=== PATIENT | female | born 1935 | race Caucasian/White ===

== ENCOUNTER 2016-09-24 14:55 | Inpatient (IN) | payer OTHER, MEDICARE ==
[~2016-09-24] VITALS: Ht 149.9 cm; Wt 92.5 kg
[~2016-09-24 14:55] MED LIST: ATORVASTATIN CA40 MG PO; AZITHROMYCIN250 MG PO; COUMADIN 2.5 M2.5 MG PO; DILANTIN ER 10100 MG PO; DIOVAN80 MG PO; FAMOTIDINE20 MG PO; KLOR-CON SPRIN10 MEQ PO; LASIX40 MG PO; LEVOTHROID0.1 MG PO; LOPRESSOR 25MG25 MG PO; METFORMIN HCL500 MG PO; PHENOBARBITAL32.4 MG PO
--- NOTE | 2016-09-24 15:28 | NUR ---
PT STATES SHE HAS HAD DIARRHEA FOR THE PAST 3 WEEKS. PT STATES SHE THINKS SHE HAS BLOOD IN HER STOOL AND SHE THINKS SHE COULD BE DEHYDRATED
--- NOTE | 2016-09-24 16:02 | NUR ---
DR PATEL AT BEDSIDE FOR EVAL.
--- NOTE | 2016-09-24 16:45 | NUR ---
BLOOD DRAWN AND SENT TO LAB BY THIS [facility] (BLUE, SST, PINK, RAMÍREZ, LAV)
[2016-09-24 16:49] LABS: ABSOLUTE BASOPHIL COUNT 0 /CUMM (0.0-0.2); ABSOLUTE EOSINOPHIL COUNT 0.3 /CUMM (0.0-0.7); ABSOLUTE GRANULOCYTE CT 3.9 /CUMM (1.4-6.5); BASOPHIL % 0.4 % (0.0-2.0); EOSINOPHIL % 3.7 % (0-5); GRANULOCYTE % 54.5 % (42.2-75.2); HEMATOCRIT 31.4 % (37-47); MEAN CORPUSCULAR HGB CONC 34.1 G/DL (33.0-37.0); MEAN CORPUSCULAR VOLUME 93.8 FL (81.0-99.0); MEAN PLATELET VOLUME 7.1 FL (7.4-10.4); PLATELET COUNT 282 /CUMM (130-400); RBC DISTRIBUTION WIDTH 13.7 % (11.5-14.5); RED BLOOD CELL CT 3.35 /CUMM (4.20-5.40)
--- NOTE | 2016-09-24 16:52 | NUR ---
PT UP TO COMMODE.
--- NOTE | 2016-09-24 16:54 | NUR ---
PT AWARE THAT STOOL AND URINE SAMPLE IS NEEDED.
[2016-09-24 17:01] LABS: WHITE BLOOD CELL COUNT 7.1 /CUMM (4.8-10.8)
[2016-09-24] MEDS ORDERED: LEVOTHYROXINE100 MC1 PO (17:08)
[2016-09-24] MEDS ORDERED: SIMVASTATIN40 M1 PO (17:08)
[2016-09-24] MEDS ORDERED: FAMOTIDINE20 M1 PO (17:08)
[2016-09-24] MEDS ORDERED: METFORMIN HCL500 M3 PO (17:08)
[2016-09-24] MEDS ORDERED: PHENOBARBITAL32.4 M1 PO (17:08)
[2016-09-24] MEDS ORDERED: POTASSIUM CHLO10 ME5 PO (17:08)
--- NOTE | 2016-09-24 17:08 | NUR ---
NS INFUSING PER EMAR.
[2016-09-24] MEDS ORDERED: ESTRACE42.5 GM VG (17:10)
[2016-09-24] MEDS ORDERED: PHENYTOIN SODI100 MG PO (17:10)
[2016-09-24] MEDS ORDERED: FUROSEMIDE40 M1 PO (17:11)
[2016-09-24] MEDS ORDERED: NITROGLYCERIN1 EACH TOP (17:11)
--- NOTE | 2016-09-24 17:11 | ED GI/GU/ABDOMINAL COMPLAINT ---
History of Present Illness General Chief Complaint: General Adult Stated Complaint: DIARRHEA Source: patient, family, old records Exam Limitations: no limitations Vital Signs & Intake/Output Vital Signs & Intake/Output Vital Signs Date Time Temp Pulse Resp B/P B/P Pulse O2 O2 Flow FiO2 Mean Ox Delivery Rate 09/24 1718 97.0 66 18 101/57 94 Room Air 09/24 1527 97.7 68 16 170/79 92 Room Air Allergies Uncoded Allergies: INHALER (UNSURE NAME) (HIVES 09/07/11) Reconcile Medications Aspirin (Ecotrin*) 81 MG TABLET.DR 1 TAB PO DAILY HEART/BLOOD (Reported) Ciclopirox Olamine (Ciclopirox) 0.77 % SUSPENSION 1 SANAZ TOP DAILY GROIN ( Reported) Estradiol (Estrace) 0.01 % CREAM.APPL 1 SANAZ VG DAILY HRT (Reported) Famotidine 20 MG TABLET 1 TAB PO DAILY GI (Reported) Furosemide 40 MG TABLET 1 TAB PO DAILY DIURETIC (Reported) Levothyroxine Sodium 100 MCG TABLET 1 TAB PO DAILY THYROID (Reported) Metformin HCl 500 MG TABLET 1 TAB PO BID DM (Reported) Metoprolol Tartrate 25 MG TABLET 1 TAB PO DAILY HEART/BP (Reported) Nitroglycerin (Nitroglycerin Patch) 0.4 MG/HOUR PATCH.TD24 1 PATCH TOP DAILY HEART (Reported) Phenobarbital 32.4 MG TABLET 3 TAB PO QPM SEIZURES (Reported) Phenytoin Sodium Extended 100 MG CAPSULE 2 CAP PO BID SEIZURES (Reported) Potassium Chloride 10 MEQ TAB.ER.PRT 1 TAB PO DAILY SUPPLEMENT (Reported) Simvastatin (Simvastatin*) 40 MG TABLET 1 TAB PO QPM CHOLESTEROL (Reported) Valsartan 80 MG TABLET 1 TAB PO DAILY BP (Reported) Triage Note: PT STATES SHE HAS HAD DIARRHEA FOR THE PAST 3 WEEKS. PT STATES SHE THINKS SHE HAS BLOOD IN HER STOOL AND SHE THINKS SHE COULD BE DEHYDRATED Triage Nurses Notes Reviewed? yes LMP (ages 10-50): post menopausal ? n Is pt currently ? No Onset: 3 months Duration: week(s):, changing over time, continues in ED, getting worse Timing: recent history Quality/Severity: cramping, moderate Location: generalized abdomen Radiation: no radiation Activities at Onset: none Prior Abdominal Problems: none Past Sexual History: Unobtainable at this time Modifying Factors: Worsens With: eating. Associated Symptoms: abdominal pain, diarrhea, loss of appetite HPI: 3 months prior to admission patient complains of episodic loose watery stools. 3 weeks prior to admission and diarrhea increased in frequency becoming uncontrollable with Imodium associated with nausea and decreased appetite and weakness. She denies fever chills nausea vomiting chest pain cough shortness of breath headache dysuria rash bleeding antibiotic use ill contacts. (AKIN PATEL MD) Past History Travel History Traveled to [place] past 21 day No Medical History Any Pertinent Medical History? 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 No (AKIN PATEL MD) Review of Systems Review of Systems Constitutional: Reports: see HPI, weakness. EENTM: Reports: no symptoms. Respiratory: Reports: no symptoms. Cardiovascular: Reports: no symptoms. GI: Reports: see HPI, abdominal pain, diarrhea. Genitourinary: Reports: no symptoms. Musculoskeletal: Reports: no symptoms. Skin: Reports: no symptoms. Neurological/Psychological: Reports: no symptoms. Hematologic/Endocrine: Reports: no symptoms. Immunologic/Allergic: Reports: no symptoms. All Other Systems: Reviewed and Negative (AKIN PATEL MD) Physical Exam Physical Exam General Appearance: well developed/nourished, alert, awake, anxious, mild distress, obese Head: atraumatic, normal appearance Eyes: Bilateral: normal appearance, PERRL, EOMI, normal inspection. Ears, Nose, Throat, Mouth: hearing grossly normal, dry mucous membranes Neck: normal inspection, supple, full range of motion, normal alignment, no midline tenderness Respiratory: normal breath sounds, chest non-tender, no respiratory distress, lungs clear Cardiovascular: regular rate/rhythm, normal peripheral pulses, norml femoral pulses equa Peripheral Pulses: 4+ carotid (R), 4+ carotid (L) Gastrointestinal: normal bowel sounds, soft, non-tender, no organomegaly Back: normal inspection, normal range of motion, no vertebral tenderness Extremities: normal range of motion, pedal edema, no ligament instability Neurologic/Psych: no motor/sensory deficits, awake, alert, oriented x 3, normal mood/affect, 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 No Severe Sepsis Present: No Septic Shock Present: No (AMANDA LEONG,AKIN) Progress Differential Diagnosis: biliary colic, diverticulitis, gastritis Plan of Care: Orders Procedure Date/time Status Add-on Test (ER Only) 09/24 2104 Active BLOOD CULTURE 09/24 2104 Active Add-on Test (ER Only) 09/24 1711 Active DILANTIN 09/24 163 Complete STOOL: R/O YERSINIA 09/24 161 Active STOOL:R/O VIBRIO 09/24 161 Active CULTURE,STOOL 09/24 161 Active C.DIFFICILE 09/24 161 Active URINALYSIS 09/24 161 Complete LIPASE 09/24 161 Complete COMPREHENSIVE METABOLIC PANEL 09/24 161 Complete CBC WITHOUT DIFFERENTIAL 09/24 161 Complete Current Medications Sig/Flory Start time Last Medication Dose Stop Time Status Admin Ceftriaxone Sodium 1,000 MG ONCE ONE 09/24 2114 UNVr (Rocephin) 09/25 2115 Laboratory Tests 09/24/16 1833: Urinalysis LIGHT H, Urine Color YEL, Urine Clarity HAZY H, Urine pH 6.5, Ur Specific [place] <= 1.005, Urine Protein NEG, Urine Ketones NEG, Urine Nitrite NEG, Urine Bilirubin NEG, Urine Urobilinogen 0.2, Ur Leukocyte Esterase LARGE H , Ur Microscopic SEDIMENT EXAMINED, Urine RBC 1-3, Urine WBC 25-50 H, Ur Epithelial Cells MOD H, Urine Bacteria MANY H, Granular Casts 5-10 H, Urine Hemoglobin SMALL H, Urine Glucose NEG 09/24/16 1636: Anion Gap 11, Estimated GFR > 60, BUN/Creatinine Ratio 23.3, Glucose 101 H, Calcium 9.1, Total Bilirubin 0.5, AST 41 H, ALT 50, Alkaline Phosphatase 99, Total Protein 8.4 H, Albumin 4.5, Globulin 3.9, Albumin/Globulin Ratio 1.2, Lipase 122, CBC w Diff NO MAN DIFF REQ, RBC 3.35 L, MCV 93.8, MCH 32.0 H, RDW 13.7, MPV 7.1 L, Gran % 54.5, Lymphocytes % 28.0, Monocytes % 13.4 H, Eosinophils % 3.7, Basophils % 0.4, Absolute Granulocytes 3.9, Absolute Lymphocytes 2.0, Absolute Monocytes 1.0 H, Absolute Eosinophils 0.3, Absolute Basophils 0, PUBS MCHC 34.1, Ref Lab Test Result Pending, Phenytoin 8.7 L Microbiology 09/24 2104 BLOOD: Blood Culture - ORD 09/24 2104 BLOOD: Blood Culture - ORD 09/25 1611 STOOL: Clostridium difficile Toxin A & B - ORD 09/25 1611 STOOL: Vibrio Culture - ORD 09/25 1611 STOOL: Yersinia Culture - ORD 09/25 1611 STOOL: Stool Culture - ORD Diagnostic Imaging: Viewed by Me: CT Scan. Discussed w/RAD: CT Scan. Initial ED EKG: none Hand-Off Endorsed To: PIETRO LEONG,TOM Dai Endorsed Time: 1899 Pending: CT, other (hospitalization) (AMANDA LEONG,AKIN) Radiology Impression: abd/pelvic ct... constipation, no inflammation... full report below. Comments: PATIENT: MEENA ALFONSO PRESENT AGE: 80 PATIENT ACCOUNT NO: [id number] : 35 LOCATION: [facility] ORDERING PHYSICIAN: AKIN PATEL MD SERVICE DATE: 09/24/16 EXAM TYPE: CAT - CT ABD & PELVIS W IV CONTRAST EXAMINATION: CT ABDOMEN AND PELVIS WITH CONTRAST CLINICAL INFORMATION: Diarrhea for 3 months. COMPARISON: None. TECHNIQUE: Multidetector volumetric imaging was performed of the abdomen and pelvis before and after the IV administration of 94 mL of Optiray 320 intravenous contrast. Sagittal and coronal reformatted images were obtained on the technologist's workstation. DLP: 1173 mGy-cm FINDINGS: LUNG BASES: Bibasilar subsegmental atelectasis. LIVER, GALLBLADDER, AND BILIARY TREE: The liver is normal in size and attenuation. No focal hepatic lesion or biliary ductal dilatation is present. The gallbladder is physiologically distended. Several small stones are present within the gallbladder lumen without associated gallbladder wall or pericholecystic inflammatory changes. PANCREAS: Generalized pancreatic atrophy without peripancreatic inflammatory changes or fluid collections. SPLEEN: Unremarkable. ADRENAL GLANDS: Unremarkable. KIDNEYS AND URETERS: The kidneys are normal in size, shape, and attenuation. No hydronephrosis, hydroureter, or calculi seen. No perinephric stranding. BLADDER: The urinary bladder is moderately distended. There is mass effect along the left posterolateral aspect of the bladder secondary to a redundant sigmoid colon with a significant amount of retained stool. GASTROINTESTINAL TRACT: As noted above, there is significant redundancy of the sigmoid colon. Also noted is a significant amount of retained stool throughout the colon, indicative of constipation. The rectal vault is distended and filled with fecal matter and is visualized measuring approximately 8.0 x 10.0 cm in AP and transverse dimensions respectively. There is also identified throughout the colon. Loops of small bowel are normal in caliber, without findings indicative of small bowel obstruction. No circumferential bowel wall thickening is identified. There are no organizing intra-abdominal or pelvic fluid collections and there is no free intraperitoneal air. ABDOMINAL WALL: Large pannus. No ventral abdominal wall hernia. LYMPH NODES: No significant mesenteric, retroperitoneal or deep pelvic adenopathy. Subcentimeter bilateral inguinal chain lymph nodes. VASCULAR: Atherosclerosis of the imaged abdominal aorta and its branching vessels, without aneurysmal dilatation. The abdominal aorta and its branching vessels are patent and normal in caliber. PELVIC VISCERA: Unremarkable. OSSEOUS STRUCTURES: No acute osseous abnormality. Severe multilevel degenerative disc disease and facet arthrosis of the lumbar spine. No visible destructive osseous lesions. No acute osseous abnormality is identified. IMPRESSION: 1. There is significant redundancy of the sigmoid colon. A significant amount of retained stool is identified throughout the colon, indicative of constipation. The rectal vault is filled with stool. There is no circumferential rectal wall thickening to suggest stercoral colitis. No bowel wall pneumatosis is identified. There are no findings indicative of perforation. 2. Cholelithiasis, without secondary signs of acute cholecystitis. DICTATED BY: KALPESH ROLLE MD DATE/TIME DICTATED:09/24/161938 BIOMETRIC SCREENER:UMESH DATE/TIME TRANSCRIBED:09/24/161938 CONFIDENTIAL, DO NOT COPY WITHOUT APPROPRIATE AUTHORIZATION. <Electronically signed in Other Vendor System> SIGNED BY: KALPESH ROLLE MD 09/24/161951 (PIETRO LEONG,TOM Dai) Departure Departure Disposition: STILL A PATIENT Condition: Stable Referrals: JACOB LEONG,JAZ Goodwin (PCP/Family) Departure Forms: Customer Survey General Discharge Information (AMANDA LEONG,AKIN) Departure Clinical Impression Primary Impression: Diarrhea Qualifiers: Diarrhea type: unspecified type Qualified Code: R19.7 - Diarrhea, unspecified Secondary Impressions: Dehydration syndrome, Hyponatremia syndrome, UTI (urinary tract infection) Admission Note Spoke With: USMAN COSME MD Documentation of Exam: Documentation of any treatments & extenuating circumstances including Concerns Regarding Discharge (functional status, medication knowledge or non-compliance, living conditions, etc.) that warrant an admission rather than observation: pt with hyponatremia, weakness, also with symptoms consistent with uti (burning, "smells funny" per patient), and diarrhea of uncertain etiology (?overflow from constipation). Pt merits inpatient care of her complicated multifactorial medical presentation, including iv abx, iv fluids, possible gi consult vs bowel clean out. (PIETRO LEONG,TOM Dai)
[2016-09-24] MEDS ORDERED: CICLOPIROX60 ML TOP (17:12)
[2016-09-24] MEDS ORDERED: METOPROLOL TART25 M1 PO (17:12)
[2016-09-24] MEDS ORDERED: ASPIRIN EC81 M1 PO (17:13)
[2016-09-24] MEDS ORDERED: VALSARTAN80 M1 PO (17:13)
--- NOTE | 2016-09-24 18:35 | NUR ---
PT URINE COLLECTED AND SENT TO LAB. SINGLE CLEAR TOP SENT PT HAS POOR OUTPUT AT THIS TIME
--- NOTE | 2016-09-24 19:07 | NUR ---
PT TO CAT SCAN AT THIS TIME VIA STRETCHER.
--- NOTE | 2016-09-24 19:52 | CT SCAN REPORT ---
EXAMINATION: CT ABDOMEN AND PELVIS WITH CONTRAST CLINICAL INFORMATION: Diarrhea for 3 months. COMPARISON: None. TECHNIQUE: Multidetector volumetric imaging was performed of the abdomen and pelvis before and after the IV administration of 94 mL of Optiray 320 intravenous contrast. Sagittal and coronal reformatted images were obtained on the technologist's workstation. DLP: 1173 mGy-cm FINDINGS: LUNG BASES: Bibasilar subsegmental atelectasis. LIVER, GALLBLADDER, AND BILIARY TREE: The liver is normal in size and attenuation. No focal hepatic lesion or biliary ductal dilatation is present. The gallbladder is physiologically distended. Several small stones are present within the gallbladder lumen without associated gallbladder wall or pericholecystic inflammatory changes. PANCREAS: Generalized pancreatic atrophy without peripancreatic inflammatory changes or fluid collections. SPLEEN: Unremarkable. ADRENAL GLANDS: Unremarkable. KIDNEYS AND URETERS: The kidneys are normal in size, shape, and attenuation. No hydronephrosis, hydroureter, or calculi seen. No perinephric stranding. BLADDER: The urinary bladder is moderately distended. There is mass effect along the left posterolateral aspect of the bladder secondary to a redundant sigmoid colon with a significant amount of retained stool. GASTROINTESTINAL TRACT: As noted above, there is significant redundancy of the sigmoid colon. Also noted is a significant amount of retained stool throughout the colon, indicative of constipation. The rectal vault is distended and filled with fecal matter and is visualized measuring approximately 8.0 x 10.0 cm in AP and transverse dimensions respectively. There is also identified throughout the colon. Loops of small bowel are normal in caliber, without findings indicative of small bowel obstruction. No circumferential bowel wall thickening is identified. There are no organizing intra-abdominal or pelvic fluid collections and there is no free intraperitoneal air. ABDOMINAL WALL: Large pannus. No ventral abdominal wall hernia. LYMPH NODES: No significant mesenteric, retroperitoneal or deep pelvic adenopathy. Subcentimeter bilateral inguinal chain lymph nodes. VASCULAR: Atherosclerosis of the imaged abdominal aorta and its branching vessels, without aneurysmal dilatation. The abdominal aorta and its branching vessels are patent and normal in caliber. PELVIC VISCERA: Unremarkable. OSSEOUS STRUCTURES: No acute osseous abnormality. Severe multilevel degenerative disc disease and facet arthrosis of the lumbar spine. No visible destructive osseous lesions. No acute osseous abnormality is identified. IMPRESSION: 1. There is significant redundancy of the sigmoid colon. A significant amount of retained stool is identified throughout the colon, indicative of constipation. The rectal vault is filled with stool. There is no circumferential rectal wall thickening to suggest stercoral colitis. No bowel wall pneumatosis is identified. There are no findings indicative of perforation. 2. Cholelithiasis, without secondary signs of acute cholecystitis.
--- NOTE | 2016-09-24 20:16 | NUR ---
AT BEDSIDE FOR DISCUSSION ON PLAN OF CARE. PT TO COMMODE WITH ASSISTANCE BY THIS RN AND USE OF WALKER. CALL SCHREIBER WITHIN REACH.
--- NOTE | 2016-09-24 20:48 | NUR ---
PT FAMILY BACK TO BEDSIDE. AT BEDSIDE FOR DISCUSSION ON POC
--- NOTE | 2016-09-24 21:58 | NUR ---
PT MEDICATED WITH 1G ROCEPHIN PER EMAR
--- NOTE | 2016-09-24 22:14 | NUR ---
PT TO AND FROM TRICE WITH ASSISTANCE BY GALO GRIMES
--- NOTE | 2016-09-24 23:42 | NUR ---
PT SLEEPING AT THIS TIME WITH RR NOTED. BILATERAL CHEST RISE AND FALL. SNORING NOTED. CALL SCHREIBER WITHIN REACH. SIDE RAILS REMAIN IN UPRIGHT POSITION. WILL CTM.
--- NOTE | 2016-09-24 23:46 | Admission Certification ---
Admission Certification Certification Statement - As attending physician, I certify that at the time of - admission, based on clinical presentation, severity of - symptoms, need for further diagnostic testing and - therapeutic interventions, and risk of adverse outcomes - without in-hospital treatment, in my clinical assessment, - this patient requires an acute hospital stay for a minimum - of two nights or longer. I have also considered psychsocial - factors such as support system, advanced age, financial - issues, cognitive issues, and failed out-patient treatments, - past re-admission history, safety of patient, and lack of - compliance as applicable. Specific rationale supporting this admission is: Diarrhea, weakness, hyponatremia.
--- NOTE | 2016-09-24 23:59 | NUR ---
bed assignment 220-1
--- NOTE | 2016-09-25 00:32 | NUR ---
ATTEMPTED TO CALL REPORT TO FLOOR, TOLD THE NURSE WOULD CALL BACK
--- NOTE | 2016-09-25 01:14 | NUR ---
REPORT GIVEN TO DACIA GRAF
[2016-09-25 02:11] VITALS: BP 138/64
--- NOTE | 2016-09-25 02:20 | History & Physical ---
ADIA MONTANO 09/25/16 0219: General Information and HPI MD Statement: I have seen and personally examined MEENA ALFONSO and documented this H&P. The patient is a 80 year old F who presented with a patient stated chief complaint of diarrhea diarrhea. 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 Patient states that diarrhea started 3 months ago, intermittent, loose watery stools, denies any blood in stool. However her diarrhea has been worsening for the past 3 weeks, has to go constantly. She does state that occasionally her diarrhea is dark but she denies any sridevi blood. She states that she is normally constipated and usually takes psyllium. however she stopped bowel regimen recently given her increased BM frequency. Patient reports generalized abdominal discomfort. Also reports loss of appetite and generalized weakness. She denies any nausea, vomiting. She also states that she has had multiple UTIs in the past, usually 2-3 per year . She states that over the last 3 or 4 months, she feels her urination is different. She denies any specific dysuria, malodor, blood, urgency or frequency. He denies any fever, chills. She does admit to some incontinence which has been ongoing for years as she has spinal stenosis. patient denies any fever, chills, headache, weakness or sensory changes, numbness or tingling sensation, difficulty breathing, cough, chest pain, racing of heart, nausea, vomiting. Patient has history of abdominal pain and diarrhea and she was admitted at [facility] in May 2015 for community-acquired pneumonia and Coumadin ( recurrent dvt) was discontinued for history of GI bleed. colonoscopy in 2010 showed internal and external hemorrhoids, diverticulosis. Allergies/Medications Allergies: Uncoded Allergies: INHALER (UNSURE NAME) (HIVES 09/07/11) Home Med list Aspirin (Ecotrin*) 81 MG TABLET.DR 1 TAB PO DAILY HEART/BLOOD (Reported) Ciclopirox Olamine (Ciclopirox) 0.77 % SUSPENSION 1 SANAZ TOP DAILY GROIN ( Reported) Estradiol (Estrace) 0.01 % CREAM.APPL 1 SANAZ VG DAILY HRT (Reported) Famotidine 20 MG TABLET 1 TAB PO DAILY GI (Reported) Furosemide 40 MG TABLET 1 TAB PO DAILY DIURETIC (Reported) Levothyroxine Sodium 100 MCG TABLET 1 TAB PO DAILY THYROID (Reported) Metformin HCl 500 MG TABLET 1 TAB PO BID DM (Reported) Metoprolol Tartrate 25 MG TABLET 1 TAB PO DAILY HEART/BP (Reported) Nitroglycerin (Nitroglycerin Patch) 0.4 MG/HOUR PATCH.TD24 1 PATCH TOP DAILY HEART (Reported) Phenobarbital 32.4 MG TABLET 3 TAB PO QPM SEIZURES (Reported) Phenytoin Sodium Extended 100 MG CAPSULE 2 CAP PO BID SEIZURES (Reported) Potassium Chloride 10 MEQ TAB.ER.PRT 1 TAB PO DAILY SUPPLEMENT (Reported) Simvastatin (Simvastatin*) 40 MG TABLET 1 TAB PO QPM CHOLESTEROL (Reported) Valsartan 80 MG TABLET 1 TAB PO DAILY BP (Reported) Compliance With Home Meds: GOOD Past History Travel History Traveled to [place] past 21 day No Medical History Neurological: seizure EENT: NONE Cardiovascular: aortic stenosis, CAD, hypertension Respiratory: asthma Gastrointestinal: hiatal hernia Hepatic: NONE Renal: NONE Musculoskeletal: osteoarthritis, osteoporosis Psychiatric: NONE Endocrine: diabetes, hypothyroidism Blood Disorders: RECURRENT DVT Cancer(s): 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 Denies: chills, diaphoresis, fever, malaise, unexplained weight loss. EENTM: Denies: see HPI. Cardiovascular: Denies: chest pain, edema, orthopena, palpitations, peripheral edema, syncope. Respiratory: Denies: cough, hemoptysis, orthopnea, short of breath. GI: Reports: abdominal pain, diarrhea, melena, changes in stool. Denies: bloating, constipation, nausea, steatorrhea. Genitourinary: Denies: discharge, dysuria, frequency, urgency. Musculoskeletal: Reports: joint pain. Denies: back pain, gout. Skin: Denies: see HPI. Neurological/Psychological: Denies: anxiety, ataxia, confusion, depressed, dementia, emotional problems, headache, numbness, tingling, tremors. Exam & Diagnostic Data Last 24 Hrs of Vital Signs/I&O Vital Signs Date Time Temp Pulse Resp B/P B/P Pulse O2 O2 Flow FiO2 Mean Ox Delivery Rate 09/25 0211 98.0 60 18 138/64 96 Room Air 09/25 0137 96.4 54 20 117/56 94 Room Air 09/24 2210 96.2 61 18 113/57 95 Room Air 09/24 1718 97.0 66 18 101/57 94 Room Air 09/24 1527 97.7 68 16 170/79 92 Room Air Intake & Output 09/25 0800 09/25 0000 09/24 1600 Intake Total 0 Output Total Balance 0 Intake, Oral 0 Patient 92.986 kg Weight Weight Reported by Patient Measurement Method Physical Exam General Appearance Alert, Oriented X3, Cooperative, No Acute Distress Skin No Breakdown HEENT Atraumatic, PERRLA, EOMI, Mucous Membr. moist/pink Neck Supple, No JVD Lymphatic Cervical nl Cardiovascular Normal S1, Normal S2, esm murmur Lungs Normal Air Movement Abdomen Normal Bowel Sounds, Soft, tender on palpation - diffusely Neurological Strength at 5/5 X4 Ext, Cranial Nerves 3-12 NL Extremities No Clubbing, No Cyanosis, +2 edema - pitting Vascular Normal Pulses, Pulses Symmetrical Last 24 Hrs of Labs/[place]: Laboratory Tests 09/24/16 1833: Urinalysis LIGHT H, Urine Color YEL, Urine Clarity HAZY H, Urine pH 6.5, Ur Specific [place] <= 1.005, Urine Protein NEG, Urine Ketones NEG, Urine Nitrite NEG, Urine Bilirubin NEG, Urine Urobilinogen 0.2, Ur Leukocyte Esterase LARGE H , Ur Microscopic SEDIMENT EXAMINED, Urine RBC 1-3, Urine WBC 25-50 H, Ur Epithelial Cells MOD H, Urine Bacteria MANY H, Granular Casts 5-10 H, Urine Hemoglobin SMALL H, Urine Glucose NEG 09/24/16 1636: Anion Gap 11, Estimated GFR > 60, BUN/Creatinine Ratio 23.3, Glucose 101 H, Serum Osmolality 278 L, Calcium 9.1, Total Bilirubin 0.5, AST 41 H, ALT 50, Alkaline Phosphatase 99, Total Protein 8.4 H, Albumin 4.5, Globulin 3.9, Albumin/Globulin Ratio 1.2, Lipase 122, CBC w Diff NO MAN DIFF REQ, RBC 3.35 L, MCV 93.8, MCH 32.0 H, RDW 13.7, MPV 7.1 L, Gran % 54.5, Lymphocytes % 28.0, Monocytes % 13.4 H, Eosinophils % 3.7, Basophils % 0.4, Absolute Granulocytes 3.9, Absolute Lymphocytes 2.0, Absolute Monocytes 1.0 H, Absolute Eosinophils 0.3, Absolute Basophils 0, PUBS MCHC 34.1, Ref Lab Test Result Pending, Phenytoin 8.7 L Microbiology 09/24 2152 BLOOD: Blood Culture - RECD 09/24 2136 BLOOD: Blood Culture - RECD 09/24 2122 URINE ROUT: Urine Culture - RECD 09/24 161 STOOL: Clostridium difficile Toxin A & B - ORD 09/24 161 STOOL: Vibrio Culture - ORD 09/24 161 STOOL: Yersinia Culture - ORD 09/24 161 STOOL: Stool Culture - ORD Assessment/Plan Assessment: This is a 80-year-old female with past medical history significant for seizures, lower extremity swelling on lasix, aortic stenosis, coronary artery disease, hypertension, asthma, GERD, hiatal hernia, osteoarthritis, osteoporosis, type 2 diabetes mellitus, hypothyroidism, 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 Vitals on admission vitals on admission afebrile, heart rate 68, respiratory rate 16, blood pressure 170/79, saturating at 92 on room air. Pertinent Admission Hemoglobin 10.7 and hematocrit 31 BEP-sodium 130. Kidney function tests normal Urine showed esterases, WBC 50, epithelial cells, bacteria, casts. LFTs normal. CAT scan showed 1. There is significant redundancy of the sigmoid colon. A significant amount of retained stool is identified throughout the colon, indicative of constipation. The rectal vault is filled with stool. There is no circumferential rectal wall thickening to suggest stercoral colitis. No bowel wall pneumatosis is identified. There are no findings indicative ofperforation. 2. Cholelithiasis, without secondary signs of acute cholecystitis. Problem list 1. Chronic diarrhea/unsteady patient 2. Urinary tract infection ?? 3. Hyponatremia 4. Anemia 5. Seizures 6. Lower extremity swelling 7. CAD 8. Hypertension 9. GERD 10. Diabetes mellitus 11. History of DVT Chronic diarrhea and constipation Patient states that diarrhea started 3 months ago, intermittent, loose watery stools, denies any blood in stool. However her diarrhea has been worsening for the past 3 weeks, has to go constantly. She does state that occasionally her diarrhea is dark but she denies any sridevi blood. She states that she is normally constipated and usually takes psyllium. however she stopped bowel regimen recently given her increased BM frequency. * Diarrhea possibly from medication induced. * Admit to general medicine floor for further management * Monitor vitals closely * Monitor for fever and leukocytosis * Given the patient's significant constipation on CT scan and abdominal distention with decreased bowel sounds, we will give her MiraLAX as well as a one-time Dulcolax suppository. * The CT did not show signs of colitis, the patient remains constipated, consider enema. * We will send stool culture, vibrio and yersinia, as well as C. difficile * GI consult placed. * follow up Stool cultures Hyponatremia * Sodium 130 on admission * Patient was having diarrhea and her oral intake was low * She looks dehydrated on admission * Most possibly hypovolemic hyponatremia from diuretic and dehydration * Provide gentle IV hydration-normal saline 75 mL /hr * We'll check BEP again in the morning * We'll check urine lites * Will check urine osmolality and serum osmolality * Goal is to correct Na at a rate of 0.5 mEq/L/h with care not to rapidly correct for risk of central pontine myelinolysis Possible urinary tract infection She also states that she has had multiple UTIs in the past, usually 2-3 per year . She states that over the last 3 or 4 months, she feels her urination is different. She denies any specific dysuria, malodor, blood, urgency or frequency. sHe denies any fever, chills. She does admit to some incontinence which has been ongoing for years as she has spinal stenosis. * Urine analysis showed esterases, WBC, epithelial cells, bacteria. * Patient received 1 dose of IV ceftriaxone in the emergency room. * Will get urine cultures * Denies any fever, leukocytosis * We'll monitor her off from antibiotics * We will reconsider antibiotic use if the patient develops new symptoms, or urine culture confirms infection. * Follow-up urine culture and blood culture results Lower extremity swelling * Patient usually takes Lasix 40 mg daily and potassium supplement * We'll hold the Lasix for now Seizures * Patient usually takes phenobarbital and phenytoin daily * Will continue home medication Coronary artery disease * Continue baby aspirin * Continue statins Hypertension * Patient is on metoprolol and valsartan at home * We'll hold blood pressure medications GERD * Continue home medication famotidine Diabetes mellitus * Patient is on metformin 500 mg twice a day at home * We'll hold metformin in the hospital * Accu-Cheks * Insulin sliding scale Anemia * Hemoglobin 10 and hematocrit 31 on admission * She was diagnosed with iron deficiency anemia * She is on iron supplements * Will check stool for guaiac * Continue iron supplements history of DVT Coumadin (recurrent dvt) was discontinued for history of GI bleed in may 2015. Full code DVT prophylaxis-Lovenox Pain pathway Regular diet as tolerated As Ranked By This Provider Problem List: 1. UTI (urinary tract infection) 2. Diarrhea Qualifiers Diarrhea type: unspecified type Qualified Code: R19.7 - Diarrhea, unspecified Core Measures/Miscellaneous Acute Coronary Syndrome ACS Diagnosis: No Cerebrovascular Accident CVA/TIA Diagnosis: No Congestive Heart Failure CHF Diagnosis: No Venous Thromboembolism VTE Risk Factors: Age > 40 [facility] prophylaxis d/t: No contraindications No VTE Pharm Prophylaxis d/t: No contraindications VTE Diagnosis: No VTE Type: NONE VTE Confirmed by (Test): NONE Severe Sepsis Severe Sepsis Present: No Septic Shock Septic Shock Present: No Miscellaneous Documentation Attending Case Discussed With: USMAN COSME MD Primary Care Physician: JAZ JAMES MD Patient sees these Specialists gastro Level of Patient Care: General Medicine JAROD BROWN 09/25/16 0335: Resident Review Statement Resident Statement: examined this patient, discussed with it intern, agreed with it intern Other Findings: Mrs. Alfonso is an 80 year old female w a past medical history of seizure disorder on phenytoin, hypertension, diabetes, hypothyroidism, previous DVT [ previously on Coumadin, discontinued after GI bleed], and CAD who presents to the hospital emergency department with diarrhea. She states that the diarrhea started 3 months ago intermittently, and progressively worsened over the last 3 weeks. She states that she normally is constipated and has usually takes metamucil stopped recently given her increased BM frequency. She states the consistency of the stool is soft and sometimes watery. She states it is gotten so bad over the last 3 weeks that she feels it' s "constant" and she has not been able to catch herself at times going to the bathroom. She states that the diarrhea is not a large volume. She denies any significant cramping, nausea or vomiting associated with these episodes. She does state that occasionally her diarrhea is dark but she denies any sridevi blood. She also states that she has had multiple UTIs in the past, usually 2-3 per year. She states that over the last 3 or 4 months, she feels her urination is different. She denies any specific dysuria, malodor, blood, urgency or frequency. She does admit to some incontinence which has been ongoing for years she does have spinal stenosis. The remainder of the review of systems as dictated above. Physical exam: Vitals stable, age-appropriate appearing female lying comfortably in bed in no acute distress. Skin does show signs of tenting and mild dehydration. Chest and lung exam is benign. Abdominal exam shows midline umbilical hernia, no significant right upper quadrant tenderness noted. Distention with decreased bowel sounds. 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 +1 pitting edema bilaterally. Chronic dermatitis changes from repeated bouts of cellulitis in the left lower extremity. Last echocardiogram in December 2014 revealing stage I diastolic dysfunction with ejection fraction greater than 65%. Labs as dictated above, with note of H&H 10.7/31.4 and sodium 130, phenytoin level 8.7. Urinalysis did have 25-50 white blood cells with bacteria, and leukocyte esterase positive, however did have significant amount of epithelial cells. Abdominal pelvic exam revealed no circumferential rectal wall thickening to suggest stercoral colitis. It did identify significant retained stool in the colon, indicative of constipation. Gallstones without signs of cholecystitis noted. Problem list assessment and plan We will admit the patient to the general medicine floor for treatment of the following problems: Diarrhea/constipation * Based on radiographic evidence, the patient does have constipation. Unlikely this is IBS given age, and timeline. One possible etiology of the diarrhea is medication induced. * The patient does has long standing constipation as well as dehydration which exacerbates her constipation and as she has been on psyillium chronically, which is a mucilloid bulk-forming laxative, which absorbs water. This can explain both the constipation and diarrhea. * Given the patient's significant constipation on CT scan and abdominal distention with decreased bowel sounds, we will give her MiraLAX as well as a one-time Dulcolax suppository. The CT did not show signs of colitis, the patient remains constipated, consider enema. * We will send stool culture, vibrio and yersinia, as well as C. difficile although without leukocytosis, or fever as well as the chronic and progressive nature, I believe these will return negative. * GI consult placed and pending. Hyponatremia * Total body water = 0.6 x 92 = 55.2 kg * Na deficit = TBW x (goal Na - current Na) = 55.2 x (140 - 130) = 552 mmol * Most likely hypovolemic hyponatremia given the clinical findings. * We will gently hydrate the patient with normal saline at 75 mL per hour 2 bags and reevaluate BEP. * No neurological findings to indicate impairment at the moment. * We will add on plasma osm and if the patients Na doesnt improve, consider urine osmolality and urine lytes. Patient denies polydipsia - urine osmolarity is expected to be less than 100. If this is the case consider restricting fluids. If it is greater than 100 we will consider SIADH, as well as hypothyroidism or adrenal insufficiency. Note the patient does have a hx of hypothyroidism. * Goal is to correct Na at a rate of 0.5 mEq/L/h with care not to rapidly correct for risk of central pontine myelinolysis Questionable UTI * Patient did have urinalysis showing signs of infection however it was contaminated with epithelial cells. * The patient was given a dose of ceftriaxone in the emergency department * Given the lack of leukocytosis or fever and clear symptomatology, we will hold off on antibiotics for now. * Blood and urine cultures sent and collected prior to antibiotic administration. * We will reconsider antibiotic use if the patient develops new symptoms, or urine culture confirms infection. Chronic medical problems (Seizure disorder/CAD/hypertension/diabetes/ hypothyroidism) * Continue chronic medications including phenytoin and phenobarbital, 200 mg twice a day and 97.2 mg nightly respectively * Continue aspirin 81 mg daily, nitroglycerin 0.4 mg patch 12 on 12 off, metoprolol 25 mg. Continue losartan 50 mg daily * We will place the patient on a NovoLog sliding scale with fingersticks 3 times a day before meals at bedtime * Continue levothyroxine 100 g daily. Full code Heart healthy diet Pain pathway Lovenox for DVT prophylaxis BA LEONG, [facility] 09/25/16 0542: Attending MD Review Statement Attending Statement Attending MD Statement: examined this patient, discuss w/resident/PA/HIDE CURER, agreed w/resident/PA/HIDE CURER Attending Assessment/Plan: 80 yo F with h/o T2DM, DVT off coumadin 2/2 GI bleed, hypothyroidism, seizure d/ o, HTN, CAD, is here with c/o on and off diarrhea since 3 months that is worse over past 3 weeks, wherein she reports constant need to go to the bathroom often not making it in time. She reports constipation prior to that and was taking laxatives. Dark stools+ but no BRBPR. Lower abdominal discomfort+ but no nausea or vomiting. Colonoscopy (2010): sigmoid diverticulosis, hemorrhoids. Although she does not have typical urinary symptoms of frequency or dysuria, patient notes that her urination is different, but unable to explain. Weakness+. No recent antibiotic use, no sick contacts. VSS. Dry MM, Abdomen: soft, distended, BS+, no RUQ tenderness, mild lower quadrant tenderness+. B/ LE: chronic venous stasis, 1+ pedal edema. Labs: Na 130 , lipase 122. UA WBC 25-50, large leukocyte esterase, many bacteria (mod epi cells). Phenytoin level 8.7. CT abd/pelvis: significant redundancy of sigmoid colon with retained stool (constipation), rectal vault filled with stool, no stercoral colitis, no bowel wall pneumatosis, obstruction of perforation. Cholelithiasis. Echo (2014): Stage 1 DD, EF > 65%. 1. Diarrhea with documented constipation in this patient with a redundant colon. No evidence of sigmoid volvulus (most common complication), bowel obstruction, colitis or perforation. She needs GI eval and bowel regime with adequate hydration. Will send stool studies for Cdiff, culture. Guaiac all stools. Serial abdominal exam. Consider Surgery consult if signs of acute abdomen. 2. Hypovolemic hyponatremia, worsened in the setting of diuretics (lasix). Workup with serum and urine osmolality, urine lytes. Gentle hydration, recheck sodium levels in AM. 3. Asymptomatic bacteriuria. Patient received IV ceftriaxone in ER, she does not have leukocytosis or fever, will follow urine culture and hold off antibiotics until then. Previousely UC grown Klebsiella and Ecoli. 4. Seizure disorder. Phenytoin level was low, resume phenytoin and phenobarbital. May need dosage adjustment. DVT ppx Lovenox. Full code.
[2016-09-25 06:30] VITALS: BP 132/76
[2016-09-25 08:59] LABS: ABSOLUTE BASOPHIL COUNT 0 /CUMM (0.0-0.2); ABSOLUTE EOSINOPHIL COUNT 0.2 /CUMM (0.0-0.7); ABSOLUTE GRANULOCYTE CT 2.2 /CUMM (1.4-6.5); ABSOLUTE LYMPH COUNT 1.2 /CUMM (1.2-3.4); ABSOLUTE MONOCYTE COUNT 0.7 /CUMM (0.10-0.60); BASOPHIL % 0.7 % (0.0-2.0); EOSINOPHIL % 5.5 % (0-5); GRANULOCYTE % 50.3 % (42.2-75.2); HEMATOCRIT 30.7 % (37-47); MEAN CORPUSCULAR HGB 32.1 PG (27.0-31.0); MEAN CORPUSCULAR HGB CONC 34.4 G/DL (33.0-37.0); MEAN CORPUSCULAR VOLUME 93.3 FL (81.0-99.0); MEAN PLATELET VOLUME 7.6 FL (7.4-10.4); PLATELET COUNT 244 /CUMM (130-400); RBC DISTRIBUTION WIDTH 13.9 % (11.5-14.5); RED BLOOD CELL CT 3.29 /CUMM (4.20-5.40); WHITE BLOOD CELL COUNT 4.4 /CUMM (4.8-10.8)
--- NOTE | 2016-09-25 12:42 | NUR ---
0150 ADMITTED FROM ER VIA STRETCHER TO ROOM 220 BED 1.A&OX3.80 YRS OLD WF FROM HOME.PT AMBULATED FROM STRETCHER TO BED WITH ASSIST OF 1 & RW.HL IN LH. NO C/O PAIN.V/S DONE.ORIENT TO ROOM & SURROUNDING.CALL SCHREIBER IN REACH.SKIN INTACT.GROINS ARE SLIGHTLY REDDENED.ON SEIZURE PRECAUTION.ON RA.NO RESP DISTRESS NOTED.
[2016-09-25 13:52] VITALS: BP 140/60
--- NOTE | 2016-09-25 15:03 | PN- Att Addend ---
Attending Addendum Attending Brief Note Patient seen and examined. Sitting comfortably in chair not in acute distress. She however continues complain of abdominal discomfort on and off. She continues to have several loose bowel movements today. CT scan showed evidence of severe constipation. She is afebrile and hemodynamically stable. She denies any dysuria. Urine culture overnight is negative. Vital Signs Date Time Temp Pulse Resp B/P B/P Pulse O2 O2 Flow FiO2 Mean Ox Delivery Rate 09/25 1352 98.2 62 18 140/60 99 Room Air / 1035 62 130/80 05/ 1035 62 130/80 05/08 0630 98.1 75 20 132/76 94 Room Air /08 0211 98.0 60 18 138/64 96 Room Air /08 0137 96.4 54 20 117/56 94 Room Air / 2210 96.2 61 18 113/57 95 Room Air 05/ 1718 97.0 66 18 101/57 94 Room Air / 1527 97.7 68 16 170/79 92 Room Air Gen. appearance: Not in acute distress Heart: S1-S2 regular Lungs: Clear bilaterally Abdomen: Obese, distended, soft, nontender with normal bowel sounds Extremities: Trace pedal edema. Skin: Intact Laboratory Tests 09/25/16 0735: Anion Gap 12, Estimated GFR > 60, BUN/Creatinine Ratio 20.0, CBC w Diff NO MAN DIFF REQ, RBC 3.29 L, MCV 93.3, MCH 32.1 H, RDW 13.9, MPV 7.6, Gran % 50.3, Lymphocytes % 28.2, Monocytes % 15.3 H, Eosinophils % 5.5 H, Basophils % 0.7, Absolute Granulocytes 2.2, Absolute Lymphocytes 1.2, Absolute Monocytes 0.7 H, Absolute Eosinophils 0.2, Absolute Basophils 0, PUBS MCHC 34.4 09/24/16 1833: Urinalysis LIGHT H, Urine Color YEL, Urine Clarity HAZY H, Urine pH 6.5, Ur Specific [place] <= 1.005, Urine Protein NEG, Urine Ketones NEG, Urine Nitrite NEG, Urine Bilirubin NEG, Urine Urobilinogen 0.2, Ur Leukocyte Esterase LARGE H , Ur Microscopic SEDIMENT EXAMINED, Urine RBC 1-3, Urine WBC 25-50 H, Ur Epithelial Cells MOD H, Urine Bacteria MANY H, Granular Casts 5-10 H, Urine Hemoglobin SMALL H, Urine Glucose NEG 09/24/16 1833: Urine Osmolality 215 L, Ur Random Creatinine 16.6, Ur Random Sodium 55, Ur Random Potassium 17.4, Fraction Sodium Excret 1.5 H 09/24/16 1636: Anion Gap 11, Estimated GFR > 60, BUN/Creatinine Ratio 23.3, Glucose 101 H, Serum Osmolality 278 L, Calcium 9.1, Total Bilirubin 0.5, AST 41 H, ALT 50, Alkaline Phosphatase 99, Total Protein 8.4 H, Albumin 4.5, Globulin 3.9, Albumin/Globulin Ratio 1.2, Lipase 122, CBC w Diff NO MAN DIFF REQ, RBC 3.35 L, MCV 93.8, MCH 32.0 H, RDW 13.7, MPV 7.1 L, Gran % 54.5, Lymphocytes % 28.0, Monocytes % 13.4 H, Eosinophils % 3.7, Basophils % 0.4, Absolute Granulocytes 3.9, Absolute Lymphocytes 2.0, Absolute Monocytes 1.0 H, Absolute Eosinophils 0.3, Absolute Basophils 0, PUBS MCHC 34.1, Ref Lab Test Result Pending, Phenytoin 8.7 L Microbiology 09/24 2152 BLOOD: Blood Culture - RES 09/24 2136 BLOOD: Blood Culture - RES 09/24 2122 URINE ROUT: Urine Culture - RES 09/25 1611 STOOL: Clostridium difficile Toxin A & B - CAN Cancelled: NO STOOL COLLECTED FOR MICRO DEPT. 09/25 1611 STOOL: Vibrio Culture - CAN Cancelled: NO STOOL SAMPLE COLLECTED FOR MICRO DEPT. 09/25 1611 STOOL: Yersinia Culture - CAN Cancelled: NO STOOL SAMPLE COLLECTED FOR MICRO DEPT. 09/25 1611 STOOL: Stool Culture - CAN Cancelled: NO STOOL SAMPLE COLLECTED FOR MICRO DEPT. Problems: 1. Abdominal pain/ Diarrhea; CT shows significant constipation with evidence of redundant bowel. 2. Coronary artery disease. 3. Hypertension 4. Diabetes mellitus Recommendations: -There has been chronic for the last 3 months. Imaging however shows severe constipation. She likely has overflow incontinence. She may benefit from an enema treatment. Please follow-up with the gastroenterology service. -No evidence of urinary tract infection or any other infectious process. Hold off on antibiotic therapy for now. -Hold metformin while on admission. Monitor fingersticks with sliding scale coverage.
--- NOTE | 2016-09-25 21:24 | Cons- Gastroenterology ---
General Information and HPI Consulting Request Date of Consult: 09/25/16 Requested By: BA LEONG,USMAN Reason for Consult: I was notified earlier today to assess "diarrhea, " which actually appears to be overflow incontinence, in a patient with constipation on CT, followed as outpatient by Dr. Gallardo. She also has chronic low back issues, as well as urinary incontinence. Source of Information: patient, old records Exam Limitations: poor historian, tangential, verbose, flighty, anxious History of Present Illness: 80 y/o female, poor historian, tangential, anxious, with history of seizures, chronic lower extremity edema, aortic stenosis, ASHD, hypertension, asthma, chronic anemia, past history of GERD, hiatal hernia, obese, DJD, osteoporosis, type 2 diabetes, hypothyroid, history of seizures, history of hemorrhoids, post hemorrhoidectomy, recurrent DVT (previously on Coumadin, discontinued in 05/2015 after GI bleed, when she was admitted for a community acquired pneumonia ), admitted to [facility] 09/24/2016 after she arrive at the ER 2:55 p.m. with "diarrhea," but CT actually showed constipation, without megacolon (see imaging studies). Upon arrival, she was hypertensive, not tachycardiac, and afebrile, with stable labs, no leukocytosis, stable electrolytes, mild chronic hyponatremia, normal bicarbonate, no gross evidence of dehydration, and stable mild anemia (baseline HCT in low 30's). She was given IV NS & Ceftriaxone in the ER for a suspected UTI, as she had pyuria (25-50 WBC), with large esterase. 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 She also has chronic low back issues. She has difficulty with ambulation and uses a rolling walker. She denied any recent outpatient antibiotics or NSAIDS. She claims she had "diarrhea" starting 3 months ago, which was intermittent and non- bloody in nature, however upon further questioning, this does not appear to be actual diarrhea, but rather spurious semi-formed stools around perhaps fecal impaction and constipation. There is no significant abdominal pain. She has urgency to defecate and usually has "accidents". Additionally, she appears to have some thrombosed external hemorrhoids. She normally takes psyllium for her constipation, however she stopped this recently, because of increased bowel movement frequency & accidents, not watery stools. She is uncertain regarding tenesmus. Her stool caliber appears to be chronically irregular for years. She has a history of multiple UTIs a few times a year. She denied any dysuria, hematuria, frequency, fevers, or chills, but was found to have a UTI when she was admitted 09/24/2016. *She mentioned dark stools, but on my digital exam of 09/25/2016, stools are brown and OB negative. The patient is followed by Dr. Gallardo for outpatient GI & claims she has seen him in the office several times. 07/11/2010: EGD to D2 per Dr. Gallardo- mild chronic antral gastritis, H. pylori-negative on biopsies, without active bleeding. : Colonoscopy to the cecum per Dr. Gallardo- scattered left-sided diverticula, small amount of residual stool in right colon, no masses, polyps or AVMs seen, mixed hemorrhoids, no evident bleeding. 11/12/2002: Previous colonoscopy to the cecum per Dr. Cano- left sided diverticula and internal hemorrhoids, with normal mucosa. There is no family history of colon cancer or IBD. The patient is very anxious and tangential, and it is difficult to get any further meaningful history. [There is no EKG on the chart]. 09/24/2016: CT ABDOMEN AND PELVIS WITH IV CONTRAST- 1. There is significant redundancy of the sigmoid colon. A significant amount of retained stool is identified throughout the colon, indicative of constipation. The rectal vault is filled with stool. There is no circumferential rectal wall thickening to suggest stercoral colitis. No bowel wall pneumatosis is identified. There are no findings indicative of perforation. Large pannus. 2. Cholelithiasis, without secondary signs of acute cholecystitis. No dilated ducts. 3. Bibasilar subsegmental atelectasis Allergies/Medications Allergies: Uncoded Allergies: INHALER (UNSURE NAME) (HIVES 09/07/11) Home Med List: Aspirin (Ecotrin*) 81 MG TABLET.DR 1 TAB PO DAILY HEART/BLOOD (Reported) Ciclopirox Olamine (Ciclopirox) 0.77 % SUSPENSION 1 SANAZ TOP DAILY GROIN ( Reported) Estradiol (Estrace) 0.01 % CREAM.APPL 1 SANAZ VG DAILY HRT (Reported) Famotidine 20 MG TABLET 1 TAB PO DAILY GI (Reported) Furosemide 40 MG TABLET 1 TAB PO DAILY DIURETIC (Reported) Levothyroxine Sodium 100 MCG TABLET 1 TAB PO DAILY THYROID (Reported) Metformin HCl 500 MG TABLET 1 TAB PO BID DM (Reported) Metoprolol Tartrate 25 MG TABLET 1 TAB PO DAILY HEART/BP (Reported) Nitroglycerin (Nitroglycerin Patch) 0.4 MG/HOUR PATCH.TD24 1 PATCH TOP DAILY HEART (Reported) Phenobarbital 32.4 MG TABLET 3 TAB PO QPM SEIZURES (Reported) Phenytoin Sodium Extended 100 MG CAPSULE 2 CAP PO BID SEIZURES (Reported) Potassium Chloride 10 MEQ TAB.ER.PRT 1 TAB PO DAILY SUPPLEMENT (Reported) Simvastatin (Simvastatin*) 40 MG TABLET 1 TAB PO QPM CHOLESTEROL (Reported) Valsartan 80 MG TABLET 1 TAB PO DAILY BP (Reported) Current Medications: Current Medications Sig/Flory Start time Last Medication Dose Route Stop Time Status Admin Acetaminophen 650 MG Q6P PRN 09/25 0115 AC PO Aspirin Buffered 81 MG DAILY 09/25 1000 AC 09/25 PO 1032 Atorvastatin Calcium 20 MG 1700 09/25 1700 AC 09/25 PO 1705 Bisacodyl 10 MG ONCE ONE 09/25 0115 DC / NC 09/25 0116 0300 Enoxaparin Sodium 40 MG DAILY 09/25 1000 AC 09/25 SC 1035 Famotidine 20 MG DAILY 09/25 1000 AC 09/25 PO 1032 Ibuprofen 600 MG Q6P PRN 09/25 0115 AC PO Insulin Aspart 0 TIDAC 09/25 0800 AC SC Ketorolac 15 MG Q6P PRN 09/25 0115 AC 09/25 Tromethamine IV 0823 Levothyroxine Sodium 0.1 MG DAILY AC 09/25 0700 AC 05/ PO 0640 Losartan Potassium 50 MG DAILY 09/25 1000 AC / PO 1035 Metoprolol Tartrate 25 MG DAILY / 1000 AC 05/08 PO 1035 Nitroglycerin 0.4 MG DAILY 09/25 1000 AC 09/25 TOP 1035 Nystatin 1 SANAZ BID PRN 09/25 0100 09/25 TOP 1030 Patient Medication 1 ED .STK-MED ONE 09/25 1349 DC Teaching ED 09/25 1350 Phenobarbital 97.2 MG QPM 09/25 2200 AC 09/25 PO 2202 Phenytoin 200 MG BID 09/25 0052 AC 09/25 PO 2202 Polyethylene Glycol 17 GM DAILY 09/25 1000 AC 09/25 PO 1031 Sodium Chloride 1,000 ML .[id number] 09/25 0100 AC 09/25 IV 09/26 0339 1705 Past History Travel History Traveled to [place] past 21 day No Medical History Blood Transfusion Hx: No Neurological: seizure EENT: cataracts, hearing loss Cardiovascular: angina, aortic stenosis, CAD, hypertension, HEART MURMUR Respiratory: asthma, bronchitis, pneumonia Gastrointestinal: GERD, hiatal hernia, diverticulosis coli Hepatic: cholelithiasis Renal: UTI STRESS INCONT Musculoskeletal: fracture, osteoarthritis, osteoporosis, spinal stenosis Psychiatric: NONE Endocrine: diabetes, hypothyroidism, obesity Blood Disorders: RECURRENT DVT Cancer(s): vaginal cancer (SC Ca) 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 Home Who Do You Live With? spouse, child Services at Home: None Primary Language: Kazakh Smoking Status: Never Smoked ETOH Use: denies use Illicit Drug Use: denies illicit drug use Living Will? no Power of Idea Worker/HCP? no Other Social History: (was from , now live together again). 1 dtr- [employer], with whom the patient also lives. No cigarettes, drugs, or EtOH. 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 Functional Ability ADLs Independent: dressing, eating. Unknown: toileting, bathing. Ambulation: walker (rolling) IADLs Independent: telephone. Needs Assist: shopping, housework. Unknown: finances, food prep, transportation, medication admin. 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 Review of Systems Constitutional: Denies: chills, diaphoresis, fever, malaise, weakness, unexplained weight loss. EENTM: Denies: blurred vision, double vision, visual changes, eye pain, eye drainage, eye tearing, icterus, ear discharge, ear pain, ear redness, hearing changes, nasal congestion, epistaxis, nasal pain, throat pain, throat swelling, mouth pain, tooth pain. Cardiovascular: Reports: peripheral edema. Denies: chest pain, orthopena, palpitations, syncope. Respiratory: Denies: cough, hemoptysis, orthopnea, short of breath, sputum production, stridor, wheezing. GI: Reports: bowel incontinence. Denies: abdominal pain, bloating, constipation, diarrhea, distention, melena, nausea, bloody stool, changes in stool, vomiting, steatorrhea. Genitourinary: Reports: urgency. Denies: discharge, dysuria, frequency (incontinence), hematuria, hesitation, nocturia, pain. Musculoskeletal: Reports: back pain, joint pain (DJD). Denies: gout, joint swelling, muscle pain , muscle stiffness, neck pain. Skin: Reports: lesions (chronic on back), moles. Denies: cysts, change in skin color, change in hair/nails, dryness, erythema, jaundice, lymphangitis, lumps, rash. Neurological/Psychological: Reports: tonic-clonic seizures. Denies: anxiety, ataxia, cognitive dysfunction, confusion, depressed, dementia, emotional problems, headache, numbness, paresthesia, pre-existing deficit, petit mal seizures, tingling, tremors, unable to move lower ext, unable to move upper ext, weakness. Hematologic/Endocrine: Denies: bruising, bleeding, polyuria, polydipsia. Immunologic/Allergic: Denies: splenectomy, HIV/AIDS, lymphadenopathy. All Other Systems: Reviewed and Negative Exam & Diagnostic Data Vital Signs and I&O Vital Signs Date Time Temp Pulse Resp B/P B/P Pulse O2 O2 Flow FiO2 Mean Ox Delivery Rate 09/25 1352 98.2 62 18 140/60 99 Room Air 09/25 1035 62 130/80 09/25 1035 62 130/80 09/25 0630 98.1 75 20 132/76 94 Room Air 09/25 0211 98.0 60 18 138/64 96 Room Air 09/25 0137 96.4 54 20 117/56 94 Room Air Intake & Output 09/25 04009/24 04009/23 040 Intake Total 875 0 Output Total 900 Balance -25 0 Intake, IV 225 Intake, Oral 650 0 Number 3 Bowel Movements Output, Urine 900 Patient 205 lb 205 lb Weight Weight Reported by Patient Reported by Patient Measurement Method Physical Exam: Well-developed, well-nourished, obese, elderly verbose female, in no apparent distress. Sclera anicteric. Conjunctiva pink. Oropharynx clear. No oral thrush. No aphthous ulcers. There is no adenopathy, thyromegaly, or JVD. No peripheral stigmata of inflammatory bowel disease or chronic liver disease on exam. No spiders on the anterior chest wall. Breast & pelvic exams: API. No CVA tenderness. + Kyphoscoliosis without point spine tenderness. Multiple cafe au lait spots on the back (which the patient stated were biopsied & were "benign sebhorrheic keratoses"). Lungs: clear to A&P, with slight decreased BS at the bases B/L. No wheezing, rales, or rhonchi. Heart exam: regular rate rhythm, S1 and S2, with I/ systolic murmur. Abdominal exam: normal bowel sounds, obese belly with large pannus without definite hernia, nontender, without guarding or rebound. No mass or organomegaly, within the limits of the body habitus. Negative Haskins sign. No definite fluid shift. No pulsatile mass. No epigastric bruit. Digital rectal exam: *done by myself 09/25/2016- large thrombosed external hemorrhoids, slightly tender, *fecal impaction (*partially manually disimpacted by myself, followed by brown liquid effluent, around solid stool, OB -negative, without fresh blood). Otherwise no mass. Fair sphincter tone. No additional perianal disease or fissure. Extremities: without cyanosis or clubbing. 1-2+ pitting edema of the LE B/L, with brawny induration & stasis dermatitis. No palpable cords. + DJD. No palmar erythema. No Dupuytren's contractures. Distal pulses 2+ bilaterally. DTRs 2+ bilaterally. Motor 4/5 B/ L. Alert and oriented x 3. No tremor. No asterixis. A detailed exam for peripheral neuropathy was deferred. Results Pertinent Lab Results: Laboratory Tests 09/25 09/24 0735 1833 Chemistry Sodium (137 - 145 mmol/L) 134 L Potassium (3.5 - 5.1 mmol/L) 3.6 Chloride (98 - 107 mmol/L) 98 Carbon Dioxide (22 - 30 mmol/L) 24 Anion Gap (5 - 16) 12 BUN (7 - 17 mg/dL) 10 Creatinine (0.5 - 1.0 mg/dL) 0.5 Estimated GFR (>60 ml/min) > 60 BUN/Creatinine Ratio (7 - 25 %) 20.0 Hematology CBC w Diff NO MAN DIFF REQ WBC (4.8 - 10.8 /CUMM) 4.4 L RBC (4.20 - 5.40 /CUMM) 3.29 L Hgb (12.0 - 16.0 G/DL) 10.5 L Hct (37 - 47 %) 30.7 L MCV (81.0 - 99.0 FL) 93.3 MCH (27.0 - 31.0 PG) 32.1 H RDW (11.5 - 14.5 %) 13.9 Plt Count (130 - 400 /CUMM) 244 MPV (7.4 - 10.4 FL) 7.6 Gran % (42.2 - 75.2 %) 50.3 Lymphocytes % (20.5 - 51.1 %) 28.2 Monocytes % (1.7 - 9.3 %) 15.3 H Eosinophils % (0 - 5 %) 5.5 H Basophils % (0.0 - 2.0 %) 0.7 Absolute Granulocytes (1.4 - 6.5 /CUMM) 2.2 Absolute Lymphocytes (1.2 - 3.4 /CUMM) 1.2 Absolute Monocytes (0.10 - 0.60 /CUMM) 0.7 H Absolute Eosinophils (0.0 - 0.7 /CUMM) 0.2 Absolute Basophils (0.0 - 0.2 /CUMM) 0 PUBS MCHC (33.0 - 37.0 G/DL) 34.4 Urines Urinalysis LIGHT H Urine Color (YEL,AMB,STR) YEL Urine Clarity (CLEAR) HAZY H Urine pH (5.0 - 8.0) 6.5 Ur Specific [place] (1.001 - 1.035) <= 1.005 Urine Protein (NEG,<30 MG/DL) NEG Urine Ketones (NEG) NEG Urine Nitrite (NEG) NEG Urine Bilirubin (NEG) NEG Urine Urobilinogen (0.1 - 1.0 EU/dl) 0.2 Ur Leukocyte Esterase (NEG) LARGE H Ur Microscopic SEDIMENT EXAMINED Urine RBC (0 - 5 /HPF) 1-3 Urine WBC (0 - 2 /HPF) 25-50 H Ur Epithelial Cells (NONE,FEW) MOD H Urine Bacteria (NEG/NONE) MANY H Granular Casts (NONE /LPF) 5-10 H Urine Hemoglobin (NEG) SMALL H Urine Glucose (N MG/DL) NEG 09/24 09/24 1833 1636 Chemistry Sodium (137 - 145 mmol/L) 130 L Potassium (3.5 - 5.1 mmol/L) 4.0 Chloride (98 - 107 mmol/L) 96 L Carbon Dioxide (22 - 30 mmol/L) 23 Anion Gap (5 - 16) 11 BUN (7 - 17 mg/dL) 14 Creatinine (0.5 - 1.0 mg/dL) 0.6 Estimated GFR (>60 ml/min) > 60 BUN/Creatinine Ratio (7 - 25 %) 23.3 Glucose (65 - 99 mg/dL) 101 H Serum Osmolality (285 - 295 MOSM/KG) 278 L Calcium (8.4 - 10.2 mg/dL) 9.1 Total Bilirubin (0.2 - 1.3 mg/dL) 0.5 AST (14 - 36 U/L) 41 H ALT (9 - 52 U/L) 50 Alkaline Phosphatase (<127 U/L) 99 Total Protein (6.3 - 8.2 g/dL) 8.4 H Albumin (3.5 - 5.0 g/dL) 4.5 Globulin (1.9 - 4.2 gm/dL) 3.9 Albumin/Globulin Ratio (1.1 - 2.2 %) 1.2 Lipase (23 - 300 U/L) 122 Hematology CBC w Diff NO MAN DIFF REQ WBC (4.8 - 10.8 /CUMM) 7.1 RBC (4.20 - 5.40 /CUMM) 3.35 L Hgb (12.0 - 16.0 G/DL) 10.7 L Hct (37 - 47 %) 31.4 L MCV (81.0 - 99.0 FL) 93.8 MCH (27.0 - 31.0 PG) 32.0 H RDW (11.5 - 14.5 %) 13.7 Plt Count (130 - 400 /CUMM) 282 MPV (7.4 - 10.4 FL) 7.1 L Gran % (42.2 - 75.2 %) 54.5 Lymphocytes % (20.5 - 51.1 %) 28.0 Monocytes % (1.7 - 9.3 %) 13.4 H Eosinophils % (0 - 5 %) 3.7 Basophils % (0.0 - 2.0 %) 0.4 Absolute Granulocytes (1.4 - 6.5 /CUMM) 3.9 Absolute Lymphocytes (1.2 - 3.4 /CUMM) 2.0 Absolute Monocytes (0.10 - 0.60 /CUMM) 1.0 H Absolute Eosinophils (0.0 - 0.7 /CUMM) 0.3 Absolute Basophils (0.0 - 0.2 /CUMM) 0 PUBS MCHC (33.0 - 37.0 G/DL) 34.1 Miscellaneous Ref Lab Test Result Pending Toxicology Phenytoin (10.0 - 20.0 ug/mL) 8.7 L Urines Urine Osmolality (300 - 1000 MOSM/KG) 215 L Ur Random Creatinine (mg/dL) 16.6 Ur Random Sodium (30 - 90 mmol/L) 55 Ur Random Potassium (mmol/L) 17.4 Fraction Sodium Excret (<1% %) 1.5 H Imaging/Other Studies: [There is no EKG on the chart]. 09/24/2016: CT ABDOMEN AND PELVIS WITH IV CONTRAST- 1. There is significant redundancy of the sigmoid colon. A significant amount of retained stool is identified throughout the colon, indicative of constipation. The rectal vault is filled with stool. There is no circumferential rectal wall thickening to suggest stercoral colitis. No bowel wall pneumatosis is identified. There are no findings indicative of perforation. Large pannus. 2. Cholelithiasis, without secondary signs of acute cholecystitis. No dilated ducts. 3. Bibasilar subsegmental atelectasis Assessment/Plan Assessment/Recommendations: 80 y/o female, poor historian, tangential, anxious, with history of seizures, chronic lower extremity edema, aortic stenosis, ASHD, hypertension, asthma, chronic anemia, past history of GERD, hiatal hernia, obese, DJD, osteoporosis, type 2 diabetes, hypothyroid, history of seizures, history of hemorrhoids, post hemorrhoidectomy, recurrent DVT (previously on Coumadin, discontinued in 05/2015 after GI bleed, when she was admitted for a community acquired pneumonia ), admitted to [facility] 09/24/2016 after she arrive at the ER 2:55 p.m. with "diarrhea," but CT actually showed constipation, without megacolon (see imaging studies). Upon arrival, she was hypertensive, not tachycardiac, and afebrile, with stable labs, no leukocytosis, stable electrolytes, mild chronic hyponatremia, normal bicarbonate, no gross evidence of dehydration, and stable mild anemia (baseline HCT in low 30's). She was given IV NS & Ceftriaxone in the ER for a suspected UTI, as she had pyuria (25-50 WBC), with large esterase. 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 She also has chronic low back issues. She has difficulty with ambulation and uses a rolling walker. She denied any recent outpatient antibiotics or NSAIDS. She claims she had "diarrhea" starting 3 months ago, which was intermittent and non- bloody in nature, however upon further questioning, this does not appear to be actual diarrhea, but rather spurious semi-formed stools around perhaps fecal impaction and constipation. There is no significant abdominal pain. She has urgency to defecate and usually has "accidents". Additionally, she appears to have some thrombosed external hemorrhoids. She normally takes psyllium for her constipation, however she stopped this recently, because of increased bowel movement frequency & accidents, not watery stools. She is uncertain regarding tenesmus. Her stool caliber appears to be chronically irregular for years. She has a history of multiple UTIs a few times a year. She denied any dysuria, hematuria, frequency, fevers, or chills, but was found to have a UTI when she was admitted 09/24/2016. *She mentioned dark stools, but on my digital exam of 09/25/2016, stools are brown and OB negative. The patient is followed by Dr. Gallardo for outpatient GI & claims she has seen him in the office several times. 07/11/2010: EGD to D2 per Dr. Gallardo- mild chronic antral gastritis, H. pylori-negative on biopsies, without active bleeding. : Colonoscopy to the cecum per Dr. Gallardo- scattered left-sided diverticula, small amount of residual stool in right colon, no masses, polyps or AVMs seen, mixed hemorrhoids, no evident bleeding. 11/12/2002: Previous colonoscopy to the cecum per Dr. Cano- left sided diverticula and internal hemorrhoids, with normal mucosa. There is no family history of colon cancer or IBD. The patient is very anxious and tangential, and it is difficult to get any further meaningful history. [There is no EKG on the chart]. 09/24/2016: CT ABDOMEN AND PELVIS WITH IV CONTRAST- 1. There is significant redundancy of the sigmoid colon. A significant amount of retained stool is identified throughout the colon, indicative of constipation. The rectal vault is filled with stool. There is no circumferential rectal wall thickening to suggest stercoral colitis. No bowel wall pneumatosis is identified. There are no findings indicative of perforation. Large pannus. 2. Cholelithiasis, without secondary signs of acute cholecystitis. No dilated ducts. 3. Bibasilar subsegmental atelectasis *I do not think the patient has true diarrhea, but rather, fecal impaction with overflow incontinence. She appears to have spurious loose stool around hard stools in the rectal vault, which was partially disimpacted by myself. The above could be exacerbated by her hemorrhoidal disease. Additionally, she may have pelvic floor dysfunction. She appears to have a component of urinary incontinence, as well. CT showed a redundant sigmoid colon with some retained stool. There was no evidence of stercoral colitis or bowel wall pneumatosis. She does have some low spine issues, but I do not feel she has any signs of cord compression on my limited neurologic exam. She is up-to-date with her colonoscopy screening, per Dr. Gallardo, with normal mucosa to the cecum on 2010 (albeit with fair prep in the cecum). The patient is not dehydrated by labs & is not hypotensive or tachycardic. She does not have leukocytosis & has a normal bicarbonate. None of these laboratory findings go along with any significant diarrhea. Her stools are brown & OB-negative. *SUGGEST: Disimpaction as needed. Start enema regimen with tap H20 enemas alternating with mineral oil enemas, every other day. Add Fibercon 2 tabs daily. Continue Miralax 17g po daily. Limit NSAIDs (currently on Ibuprofen). Local care regimen for external hemorrhoids. Consideration for colorectal surgery input regarding rectal outflow issues. Will defer to medical team regarding imaging studies of LS spine with regards to urinary & fecal incontinence. Continue high-fiber, heart healthy diet. Treatment of UTI per medical team. DVT prophylaxis with mechanical ALPS. As there is no true diarrhea, doubt need for stool C&S, Shiga toxin, or C. difficile. Outpatient GI follow-up with Dr. Gallardo. Further inpatient GI follow-up as needed. A message was left with Dr. Schroeder this p.m., regarding the above. Problem List: 1. Fecal impaction 2. Fecal incontinence 3. Diverticulosis of colon 4. External hemorrhoid 5. Chronic anemia Copies To: ANGEL SCHROEDER M.D, MD,CHRISTOPHER; BA LEONG,USMAN; ELISE LEONG,LOUISA Cutler; AUGUSTO LEONG,ROSALIND; JACOB LEONG,JAZ Barron. Consult Acknowledgment - Thank you for your consult request.
[2016-09-25 22:29] VITALS: BP 118/72
--- NOTE | 2016-09-26 06:04 | NUR ---
ADMINISTERED TWE @ 0600, TOLERATED WELL. WILL CONTINUE TO MONITOR THIS SHIFT.
--- NOTE | 2016-09-26 06:51 | PN- Housestaff ---
GUY LEONG,BEBE 09/26/16 0650: Subjective Follow-up For: Chronic constipation Subjective: I saw and examined the patient today morning She is sitting comfortably on the chair, having breakfast. she claims abdomial discomfort and constipation could be secondary to her spinal stenosis. She received tap water enema in the morning. Review of Systems Constitutional: Reports: see HPI. Comments: ROS negative except the above. Objective Last 24 Hrs of Vital Signs/I&O Vital Signs Date Time Temp Pulse Resp B/P B/P Pulse O2 O2 Flow FiO2 Mean Ox Delivery Rate 09/25 2229 97.4 62 18 118/72 99 09/25 1352 98.2 62 18 140/60 99 Room Air 09/25 1035 62 130/80 09/25 1035 62 130/80 Intake & Output 09/26 0809/26 0000 09/25 1600 Intake Total 840 840 550 Output Total 600 Balance 840 840 -50 Intake, IV 600 600 Intake, Oral 240 240 550 Number 1 2 Bowel Movements Output, Urine 600 Patient 92.986 kg Weight Weight Reported by Patient Measurement Method Physical Exam General Appearance: Alert, Oriented X3, Cooperative Skin: No Rashes HEENT: Atraumatic, PERRLA Neck: Supple Cardiovascular: Normal S1, Normal S2, systolic murmur present Lungs: Normal Air Movement, decreased breath sounds on left lung base Abdomen: Normal Bowel Sounds, distended Neurological: Strength at 5/5 X4 Ext, Normal Tone, Sensation Intact Extremities: No Clubbing, No Cyanosis, 3+ edema over both the extremities Current Medications: Current Medications Sig/Flory Start time Last Medication Dose Route Stop Time Status Admin Acetaminophen 650 MG Q6P PRN 09/25 0115 AC PO Aspirin Buffered 81 MG DAILY 09/25 1000 AC 09/25 PO 1032 Atorvastatin Calcium 20 MG 1700 09/25 1700 AC 09/25 PO 1705 Enoxaparin Sodium 40 MG DAILY 09/25 1000 AC 09/25 SC 1035 Famotidine 20 MG DAILY 09/25 1000 AC 09/25 PO 1032 Ibuprofen 600 MG Q6P PRN 09/25 0115 AC PO Insulin Aspart 0 TIDAC 09/25 0800 AC SC Ketorolac 15 MG Q6P PRN 09/25 0115 AC 09/25 Tromethamine IV 0823 Levothyroxine Sodium 0.1 MG DAILY AC 09/25 0700 AC 09/26 PO 0520 Losartan Potassium 50 MG DAILY 09/25 1000 AC 09/25 PO 1035 Metoprolol Tartrate 25 MG DAILY 09/25 1000 AC 09/25 PO 1035 Nitroglycerin 0.4 MG DAILY 09/25 1000 AC 09/25 TOP 1035 Nystatin 1 SANAZ BID PRN 09/25 0100 AC 09/25 TOP 1030 Patient Medication 1 ED .STK-MED ONE 09/25 1349 AL Teaching ED 09/25 1350 Phenobarbital 97.2 MG QPM 09/25 2200 AC 09/25 PO 2202 Phenytoin 200 MG BID 09/25 0052 AC 09/25 PO 2202 Polycarbophil 1,250 MG DAILY 09/26 1000 AC PO Polyethylene Glycol 17 GM DAILY 09/25 1000 AC 09/25 PO 1031 Sodium Chloride 1,000 ML .[id number] 09/25 0100 DC 09/25 IV 09/26 0339 1705 Last 24 Hrs of Lab/[place] Results Last 24 Hrs of Labs/Mics: Laboratory Tests 09/25/16 0735: Anion Gap 12, Estimated GFR > 60, BUN/Creatinine Ratio 20.0, CBC w Diff NO MAN DIFF REQ, RBC 3.29 L, MCV 93.3, MCH 32.1 H, RDW 13.9, MPV 7.6, Gran % 50.3, Lymphocytes % 28.2, Monocytes % 15.3 H, Eosinophils % 5.5 H, Basophils % 0.7, Absolute Granulocytes 2.2, Absolute Lymphocytes 1.2, Absolute Monocytes 0.7 H, Absolute Eosinophils 0.2, Absolute Basophils 0, PUBS MCHC 34.4 Assessment/Plan Assessment: This is a 80-year-old female with past medical history significant for seizures, lower extremity swelling on lasix, aortic stenosis, coronary artery disease, hypertension, asthma, GERD, hiatal hernia, osteoarthritis, osteoporosis, type 2 diabetes mellitus, hypothyroidism, 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 Vitals on admission vitals on admission afebrile, heart rate 68, respiratory rate 16, blood pressure 170/79, saturating at 92 on room air. Pertinent Admission BEP-sodium 130. Kidney function tests normal Urine showed esterases, WBC 50, epithelial cells, bacteria, casts. Urine culture postive for Gram negative rods with >100,[address] scan showed 1. There is significant redundancy of the sigmoid colon. A significant amount of retained stool is identified throughout the colon, indicative of constipation. The rectal vault is filled with stool. There is no circumferential rectal wall thickening to suggest stercoral colitis. No bowel wall pneumatosis is identified. There are no findings indicative ofperforation. 2. Cholelithiasis, without secondary signs of acute cholecystitis. Chronic Constipation with overflow incontinence Patient states that diarrhea started 3 months ago, intermittent, loose watery stools, denies any blood in stool. However her diarrhea has been worsening for the past 3 weeks, has to go constantly. She does state that occasionally her diarrhea is dark but she denies any sridevi blood. She states that she is normally constipated and usually takes psyllium. however she stopped bowel regimen recently given her increased BM frequency. * Monitor for fever and leukocytosis * In view of her chronic constipation - she was given tap water and mineral oil enemas on alternate days. * Consulted Colorectal surgery today, recommended outpatient follow up for further testing. Hyponatremia * Sodium 130 at admission, improved to 134 today. * might be secondary to GI loses and diarrhea. * Daily BEP. Possible urinary tract infection She also states that she has had multiple UTIs in the past, usually 2-3 per year . She states that over the last 3 or 4 months, she feels her urination is different. She denies any specific dysuria, malodor, blood, urgency or frequency. she denies any fever, chills. She does admit to some incontinence which has been ongoing for years as she has spinal stenosis. * Urine analysis showed esterases, WBC, epithelial cells, bacteria. * Patient received 1 dose of IV ceftriaxone in the ER. * Positive urine culture with >10,000 colonies of Gram negative rods. * We'll monitor her off antibiotics Lower extremity swelling * Patient usually takes Lasix 40 mg daily and potassium supplement * Lasix holded intially in the setting of diarrhea and volume losses. Chronic stable conditions Seizures: phenobarbital 97.2 at bedtime, phenytoin 200mg BID daily Coronary artery disease : Aspirin 81mg daily. Hypertension: metoprolol tartarate 25mg daily, losartan 50mg daily (on valasaratan at home) GERD: Continue famotidine Diabetes mellitus: Insulin sliding scale - sugars are under control with low dose sliding scale Normocytic Anemia : H&H 03/20 - remains stable. H/O DVT: Coumadin (recurrent dvt) was discontinued for history of GI bleed in may 2015. anticipated discharge. Full code DVT prophylaxis-Lovenox Problem List: 1. Seizures 2. Swelling of lower extremity 3. Fecal incontinence 4. Chronic anemia 5. Hyponatremia 6. Full code status 7. Diarrhea Pain Ratin Pain Location: n/a Pain Goal: Pain 4 or less Pain Plan: tylenol prn Tomorrow's Labs & Rationales: bep to monitor lytes while on enemas mag JHOAN LEONG[facility] 09/26/16 1615: Attending MD Review Statement Attending Statement Attending MD Statement: examined this patient, discuss w/resident/PA/CLINICAL SYSTEMS ANALYST, agreed w/resident/PA/CLINICAL SYSTEMS ANALYST, reviewed EMR data (avail), discussed with nursing, discussed with case mgmt, amended to note Attending Assessment/Plan: Patient seen and examined. Resting comfortably not in acute distress. She reports feeling better after her enema. She has been having several bowel movements. Gen. surgery follow-up appreciated. We'll obtain abdominal x-ray to evaluate for improvement of her constipation. In the significant improvement may be discharged home tomorrow. Workup of pelvic floor weakness will continue as an outpatient with the general surgery service.
[2016-09-26 06:52] VITALS: BP 140/74
[2016-09-26 08:03] LABS: ABSOLUTE BASOPHIL COUNT 0 /CUMM (0.0-0.2); ABSOLUTE EOSINOPHIL COUNT 0.3 /CUMM (0.0-0.7); ABSOLUTE LYMPH COUNT 1.4 /CUMM (1.2-3.4); ABSOLUTE MONOCYTE COUNT 0.5 /CUMM (0.10-0.60); BASOPHIL % 0.8 % (0.0-2.0); EOSINOPHIL % 6.9 % (0-5); GRANULOCYTE % 46.7 % (42.2-75.2); HEMATOCRIT 29.9 % (37-47); MEAN CORPUSCULAR HGB CONC 33.9 G/DL (33.0-37.0); MEAN CORPUSCULAR VOLUME 94.3 FL (81.0-99.0); MEAN PLATELET VOLUME 7.7 FL (7.4-10.4); PLATELET COUNT 258 /CUMM (130-400); RBC DISTRIBUTION WIDTH 13.6 % (11.5-14.5); RED BLOOD CELL CT 3.17 /CUMM (4.20-5.40); WHITE BLOOD CELL COUNT 4.3 /CUMM (4.8-10.8)
[2016-09-26 14:00] VITALS: BP 140/80
--- NOTE | 2016-09-26 14:34 | Cons- General Surgery ---
General Information and HPI Consulting Request Date of Consult: 09/26/16 Requested By: BA LEONG,USMAN Reason for Consult: constipation History of Present Illness: I was asked to see this patient in regards to her constipation and/or incontinence. Patient relates a long history of constipation dating back decades. She was in her usual state of health for the past few months. She normally takes fiber supplement and MiraLAX for her bowel function. She noted in the past few months that she was having increasing diarrhea so she alternated doses of medications. Recently it became even worse with diarrhea and incontinence. She was admitted to medical service with the diagnosis of fecal impaction. She states she was manually disimpacted at the bedside and now is better. Allergies/Medications Allergies: Uncoded Allergies: INHALER (UNSURE NAME) (HIVES 09/07/11) Home Med List: Aspirin (Ecotrin*) 81 MG TABLET.DR 1 TAB PO DAILY HEART/BLOOD (Reported) Ciclopirox Olamine (Ciclopirox) 0.77 % SUSPENSION 1 SANAZ TOP DAILY GROIN ( Reported) Estradiol (Estrace) 0.01 % CREAM.APPL 1 SANAZ VG DAILY HRT (Reported) Famotidine 20 MG TABLET 1 TAB PO DAILY GI (Reported) Furosemide 40 MG TABLET 1 TAB PO DAILY DIURETIC (Reported) Levothyroxine Sodium 100 MCG TABLET 1 TAB PO DAILY THYROID (Reported) Metformin HCl 500 MG TABLET 1 TAB PO BID DM (Reported) Metoprolol Tartrate 25 MG TABLET 1 TAB PO DAILY HEART/BP (Reported) Nitroglycerin (Nitroglycerin Patch) 0.4 MG/HOUR PATCH.TD24 1 PATCH TOP DAILY HEART (Reported) Phenobarbital 32.4 MG TABLET 3 TAB PO QPM SEIZURES (Reported) Phenytoin Sodium Extended 100 MG CAPSULE 2 CAP PO BID SEIZURES (Reported) Potassium Chloride 10 MEQ TAB.ER.PRT 1 TAB PO DAILY SUPPLEMENT (Reported) Simvastatin (Simvastatin*) 40 MG TABLET 1 TAB PO QPM CHOLESTEROL (Reported) Valsartan 80 MG TABLET 1 TAB PO DAILY BP (Reported) Past History Medical History Blood Transfusion Hx: No Neurological: seizure EENT: cataracts, hearing loss Cardiovascular: angina, aortic stenosis, CAD, hypertension, HEART MURMUR Respiratory: asthma, bronchitis, pneumonia Gastrointestinal: GERD, hiatal hernia, diverticulosis coli Hepatic: cholelithiasis Renal: UTI STRESS INCONT Musculoskeletal: fracture, osteoarthritis, osteoporosis, spinal stenosis Psychiatric: NONE Endocrine: diabetes, hypothyroidism, obesity Blood Disorders: RECURRENT DVT 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 Home Who Do You Live With? spouse, child Services at Home: None Primary Language: Bulgarian Smoking Status: Never Smoked ETOH Use: denies use Illicit Drug Use: denies illicit drug use Living Will? no Power of Cab Driver/HCP? no Other Social History: (was from , now live together again). 1 dtr- [employer], with whom the patient also lives. No cigarettes, drugs, or EtOH. Retired [employer] worker. 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 Functional Ability ADLs Independent: dressing, eating. Unknown: toileting, bathing. Ambulation: walker (rolling) IADLs Independent: telephone. Needs Assist: shopping, housework. Unknown: finances, food prep, transportation, medication admin. Employment History Employment: Disability Profession/Employer: was [employer] worker Review of Systems Review of Systems: No chest pain no dyspnea, chronic constipation, urinary incontinence, spinal stenosis with pain Exam & Diagnostic Data Vital Signs and I&O Vital Signs Date Time Temp Pulse Resp B/P B/P Pulse O2 O2 Flow FiO2 Mean Ox Delivery Rate 09/26 1400 98.3 76 18 140/80 95 Room Air 09/26 0918 84 140/80 09/26 0818 84 140/80 09/26 0652 98.3 80 20 140/74 96 Room Air 09/25 2229 97.4 62 18 118/72 99 Intake & Output 09/26 1600 09/26 0800 09/26 0000 09/25 1600 09/26 0700 09/25 0000 Intake Total 600 840 840 550 325 Output Total 800 650 600 300 Balance -200 190 840 -50 25 Intake, IV 600 600 225 Intake, Oral 600 240 240 550 100 Number 5 1 2 1 Bowel Movements Output, Urine 800 650 600 300 Patient 205 lb Weight Weight Reported by Patient Measurement Method Physical Exam: Gen.: She looks well distress obese HEENT: Anicteric PERRL EOMI Abdomen: Soft nontender nondistended no mass Last 24 Hours of Labs: Laboratory Tests 05/09 0600 Chemistry Sodium (137 - 145 mmol/L) 134 L Potassium (3.5 - 5.1 mmol/L) 4.4 Chloride (98 - 107 mmol/L) 99 Carbon Dioxide (22 - 30 mmol/L) 26 Anion Gap (5 - 16) 9 BUN (7 - 17 mg/dL) 11 Creatinine (0.5 - 1.0 mg/dL) 0.6 Estimated GFR (>60 ml/min) > 60 BUN/Creatinine Ratio (7 - 25 %) 18.3 Hematology CBC w Diff NO MAN DIFF REQ WBC (4.8 - 10.8 /CUMM) 4.3 L RBC (4.20 - 5.40 /CUMM) 3.17 L Hgb (12.0 - 16.0 G/DL) 10.1 L Hct (37 - 47 %) 29.9 L MCV (81.0 - 99.0 FL) 94.3 MCH (27.0 - 31.0 PG) 32.0 H RDW (11.5 - 14.5 %) 13.6 Plt Count (130 - 400 /CUMM) 258 MPV (7.4 - 10.4 FL) 7.7 Gran % (42.2 - 75.2 %) 46.7 Lymphocytes % (20.5 - 51.1 %) 33.2 Monocytes % (1.7 - 9.3 %) 12.4 H Eosinophils % (0 - 5 %) 6.9 H Basophils % (0.0 - 2.0 %) 0.8 Absolute Granulocytes (1.4 - 6.5 /CUMM) 2.0 Absolute Lymphocytes (1.2 - 3.4 /CUMM) 1.4 Absolute Monocytes (0.10 - 0.60 /CUMM) 0.5 Absolute Eosinophils (0.0 - 0.7 /CUMM) 0.3 Absolute Basophils (0.0 - 0.2 /CUMM) 0 PUBS MCHC (33.0 - 37.0 G/DL) 33.9 Imaging Results: CT scan of the abdomen pelvis was reviewed. Images show redundant sigmoid colon with findings consistent with fecal impaction Assessment/Plan Assessment/Plan Chronic constipation is functional in nature. Recommend reinstitution of her chronic bowel regimen. Inpatient workup of pelvic floor disorders is not appropriate or possible. Recommend outpatient referral to Dr. Gerber's office for workup. No acute intervention required Consult Acknowledgment - Thank you for your consult request.
[2016-09-26] MEDS ORDERED: FIBERCON625 M1 PO (17:37)
[2016-09-26] MEDS ORDERED: COLACE100 M1 PO (17:39)
--- NOTE | 2016-09-26 17:41 | Patient Discharge Instructions ---
Discharge Instructions General Discharge Information You were seen/treated for: chronic constipation Watch for these problems: No bowel movement for >4 days - needs attention, please notify GI doctor or PCP Please take your medications regularly Special Instructions: Please follow up with your in a week Please follow up with as an outpatient Please follow up with in a week regarding further evaluation of constipation [facility]. Diet Recommended Diet: high fiber diet Activity Full Activity/No Limits: Yes Activity Self Limited: Yes Acute Coronary Syndrome Inclusion Criteria At DC or during hospital stay patient has or had the following: ACS DIAGNOSIS No Discharge Core Measures Meds if any: Prescribed or Continued at Discharge Meds if any: NOT Prescribed or Continued at Discharge Congestive Heart Failure Inclusion Criteria At DC or during hospital stay patient has or had the following: CHF DIAGNOSIS No Discharge Core Measures Meds if any: Prescribed or Continued at Discharge Meds if any: NOT Prescribed or Continued at Discharge Cerebrovascular accident Inclusion Criteria At DC or during hospital stay patient has or had the following: CVA/TIA Diagnosis No Discharge Core Measures Meds if any: Prescribed or Continued at Discharge Meds if any: NOT Prescribed or Continued at Discharge Venous thromboembolism Inclusion Criteria VTE Diagnosis No VTE Type NONE VTE Confirmed by (Test) NONE Discharge Core Measures - Per Current guidelines, there needs to be overlap - treatment for the first 5 days of Warfarin therapy. - If discharged on Warfarin prior to 5 days of - overlap therapy, the patient will need to be - assessed for post discharge needs including - *Post discharge parental anticoagulation - *Warfarin and/or parental anticoagulation education - *Follow up date to check INR post discharge At least 5 days overlap therapy as Inpatient No Meds if any: Prescribed or Continued at Discharge Note: Overlap Therapy is Warfarin and Anticoagulant Meds if any: NOT Prescribed or Continued at Discharge
--- NOTE | 2016-09-26 19:21 | RADIOLOGY REPORT ---
EXAMINATION: XR ABDOMEN MULTIPLE VIEWS CLINICAL INDICATION: Abdominal distention. Chronic constipation. COMPARISON: CT of abdomen pelvis from 09/24/2016. TECHNIQUE: Abdomen radiographs, 2 views FINDINGS: No acute findings in the visualized lung bases. There is cardiomegaly. The two clustered 8-9 mm calcifications in the right upper quadrant represent gallstones. Again noted is distention of the colon with fecal material and gas to the level of the rectum. This is suggestive of constipation. No evidence of bowel obstruction or pneumoperitoneum. There is dextrocurvature of the extensively degenerated lower thoracic and lumbar spine. IMPRESSION: 1. The colon is distended with fecal material and gas. The findings are suggestive of constipation without bowel obstruction. 2. Cholelithiasis.
--- NOTE | 2016-09-26 20:00 | NUR ---
PT A&OX3, CURRENTLY SITTING IN BEDSIDE CHAIR, CALL LIGHT WITHIN REACH, CHAIR ALARM ON, RED SLIPPERS ON. NO DISTRESS NOTED WILL MONITOR.
[2016-09-26 21:55] VITALS: BP 140/80
[2016-09-27 06:28] VITALS: BP 130/74
--- NOTE | 2016-09-27 07:24 | PN- Housestaff ---
GUY LEONG,BEBE 09/27/16 0720: Subjective Follow-up For: chronic constipation Subjective: I saw and examined the patient this am She is lying in hte bed, stilll reports discomfort in the abdomen, had few BM's yesterday. She is supposed to get another enema today morning. Dizzy with walking. Review of Systems Constitutional: Reports: see HPI. Comments: ROS negative except the above. Objective Last 24 Hrs of Vital Signs/I&O Vital Signs Date Time Temp Pulse Resp B/P B/P Pulse O2 O2 Flow FiO2 Mean Ox Delivery Rate 09/28 627 99.2 84 20 130/74 94 Room Air 09/26 2155 98.2 71 20 140/80 98 09/26 1400 98.3 76 18 140/80 95 Room Air 09/26 0918 84 140/80 09/26 0918 84 140/80 Intake & Output 09/27 0800 09/27 0000 09/26 1600 Intake Total 200 200 600 Output Total 800 601 800 Balance -600 -401 -200 Intake, Oral 200 200 600 Number 5 Bowel Movements Output, Stool 1 Output, Urine 800 600 800 Physical Exam General Appearance: Alert, Oriented X3, Cooperative, No Acute Distress Skin: No Rashes, chronic venous stasis changes in legs HEENT: Atraumatic, PERRLA Neck: Supple Cardiovascular: Normal S1, Normal S2, holosystolic murmur present Lungs: Normal Air Movement, decreased breath sounds at the bases Abdomen: Normal Bowel Sounds, Soft, No Tenderness Neurological: Normal Tone, Sensation Intact, Cranial Nerves 3-12 NL Extremities: No Clubbing, No Cyanosis, 4+ edema present Current Medications: Current Medications Sig/Flory Start time Last Medication Dose Route Stop Time Status Admin Acetaminophen 650 MG Q6P PRN 09/25 0115 AC PO Aspirin Buffered 81 MG DAILY 09/25 999 AC 09/26 PO 0918 Atorvastatin Calcium 20 MG 1700 09/25 1700 AC 09/26 PO 1653 Enoxaparin Sodium 40 MG DAILY 09/25 999 AC 09/26 SC 09 Famotidine 20 MG DAILY 09/25 1000 AC 09/26 PO 09 Ibuprofen 600 MG Q6P PRN 09/25 0115 AC PO Insulin Aspart 0 TIDAC 09/25 0800 AC 09/26 SC 1652 Ketorolac 15 MG Q6P PRN 09/25 0115 AC 09/25 Tromethamine IV 0823 Levothyroxine Sodium 0.1 MG DAILY AC 09/25 0700 AC 09/27 PO 0608 Losartan Potassium 50 MG DAILY 09/25 1000 AC 09/26 PO 0918 Metoprolol Tartrate 25 MG DAILY 09/25 1000 AC 09/26 PO 0918 Nitroglycerin 0.4 MG DAILY 09/25 1000 AC 09/26 TOP 0917 Nystatin 1 SANAZ BID PRN 09/25 0100 AC 09/25 TOP 1030 Patient Medication 1 ED .STK-MED ONE 09/26 1353 DC Teaching ED 09/26 1354 Phenobarbital 97.2 MG QPM 09/25 2200 AC 09/26 PO 2202 Phenytoin 200 MG BID 09/25 0052 AC 09/26 PO 2201 Polycarbophil 1,250 MG DAILY 09/26 1000 AC 09/26 PO 0916 Polyethylene Glycol 17 GM DAILY 09/25 1000 AC 09/26 PO 0917 Assessment/Plan Assessment: This is a 80-year-old female with PMH significant for seizures, lower extremity swelling on lasix, aortic stenosis, CAD, HTN, asthma, GERD, hiatal hernia, osteoarthritis, osteoporosis, type 2 DM, hypothyroidism, 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 Vitals on admission vitals on admission afebrile, heart rate 68, respiratory rate 16, blood pressure 170/79, saturating at 92 on room air. Pertinent Admission BEP-sodium 130. Kidney function tests normal Urine showed esterases, WBC 50, epithelial cells, bacteria, casts. Urine culture postive for Gram negative rods with >100,[address] scan showed 1. There is significant redundancy of the sigmoid colon. A significant amount of retained stool is identified throughout the colon, indicative of constipation. The rectal vault is filled with stool. There is no circumferential rectal wall thickening to suggest stercoral colitis. No bowel wall pneumatosis is identified. There are no findings indicative ofperforation. 2. Cholelithiasis, without secondary signs of acute cholecystitis. Fecal impaction H/o chroinic constipation with recent diarrhea that progressively worsened. As a consequence of this, stopped taking psyllium which she usually takes for her constipation. * Today she had mild low grade fever with abdominal discomfort. * In view of her fecal impaction evident on imaging - started on tap water and mineral oil enemas on alternate days. * Consulted Colorectal surgery today, recommended outpatient follow up for further testing. * Today she received a total of two enemas spaced, we will obtain a AXR in the evening to follow up the colonic distention. Pseudomonas Lower urinary tract Infection She also states that she has had multiple UTIs in the past, usually 2-3 per year . She states that over the last 3 or 4 months, she feels her urination is different. She denies any specific dysuria, malodor, blood, urgency or frequency. She does admit to some incontinence which has been ongoing for years as she has spinal stenosis. Imaging ruled out pyelonephritis. * Urine analysis showed esterases, WBC, epithelial cells, bacteria. * Patient received 1 dose of IV ceftriaxone in the ER. * Her urine cultures grew pseudomonas - pansensitive, however she didnt have any white count, Tmax of 99.0 today morning. * This represents more of a lower urinary tract infection - possibly needs 3day course of antibiotics. Chronic stable conditions Seizures: phenobarbital 97.2 at bedtime, phenytoin 200mg BID daily Coronary artery disease : Aspirin 81mg daily. Hypertension: metoprolol tartarate 25mg daily, losartan 50mg daily (on valasaratan at home) GERD: famotidine Diabetes mellitus: Insulin sliding scale - sugars are under control with low dose sliding scale Normocytic Anemia : H&H 03/20 - remains stable. Lower extremity edema: Lasix on hold H/O DVT: Coumadin (recurrent dvt) was discontinued for history of GI bleed in may 2015. anticipated discharge. Full code DVT prophylaxis-Lovenox Problem List: 1. Fecal incontinence 2. Fecal impaction 3. External hemorrhoid Pain Ratin Pain Location: ABDOMEN Pain Goal: Pain 4 or less Pain Plan: TYLENOL PRN Tomorrow's Labs & Rationales: BEP TO MONITOR Na levels. JAGRUTI STAPLES MD 09/27/16 0724: Attending MD Review Statement Attending Statement Attending MD Statement: examined this patient, discuss w/resident/PA/CT SCAN TECHNOLOGIST, agreed w/resident/PA/CT SCAN TECHNOLOGIST, reviewed EMR data (avail), discussed with nursing, discussed with case mgmt, amended to note Attending Assessment/Plan: Patient seen and examined resting comfortably and not in any acute distress. No issues overnight reported by nursing staff. She admits to some improvement of her abdominal discomfort. She has been having bowel movements with bowel treatment however repeat imaging yesterday showed persistent colonic distention with fecal material and gas. Incidental finding of cholelithiasis is noted. On examination abdomen is obese, soft and nontender with normal bowel sounds. Recommendations: -Repeat enema this morning. Repeat again in the afternoon. -Continue oral bowel regimen with MiraLAX. Add Colace to her regimen. -She will require repeat imaging to determine improvement of her severe constipation prior to discharge to document improvement of her colonic distention.. Recommendations: -Repeat enema this morning. Repeat again in the afternoon. -Continue oral bowel regimen with MiraLAX. Add Colace to her regimen. -She will require repeat imaging to determine improvement of her severe constipation prior to discharge to document improvement of her colonic distention..
[2016-09-27 14:23] VITALS: BP 136/72
--- NOTE | 2016-09-27 20:56 | NUR ---
PT BACK FROM ABDOMINAL XRAY AT THIS TIME
--- NOTE | 2016-09-27 21:34 | RADIOLOGY REPORT ---
EXAMINATION: XR ABDOMEN MULTIPLE VIEWS CLINICAL INDICATION: Fecal impaction. Abdominal distention and discomfort. Diarrhea. COMPARISON: Abdomen 09/26/2016. CT scan abdomen pelvis 09/24/2016 TECHNIQUE: Supine upright abdomen FINDINGS: Large volume of stool throughout gaseous distended large bowel loops. The volume of stool in the severity of the gastric distention is unchanged since 09/26/2016. No free air. IMPRESSION: Persistent gaseous distention of colon with large volume of stool in the colon similar to exam of 09/26/2016.
[2016-09-27 22:09] VITALS: BP 110/60
--- NOTE | 2016-09-27 22:33 | NUR ---
call placed to director international at this time - noted pt to have a cough, lungs sound diminished in bases but clear, states that she brings up clear sputum at times. afebrile. denies sore throat.
--- NOTE | 2016-09-27 23:09 | RADIOLOGY REPORT ---
EXAMINATION: XR PORTABLE CHEST CLINICAL INFORMATION: New onset productive cough COMPARISON: 11/29/2015 TECHNIQUE: Portable frontal view of the chest was obtained. FINDINGS: The lungs are well expanded. There is no focal consolidation, edema, or effusion. No pneumothorax. The cardiomediastinal silhouette is unchanged, with a calcified aorta. No acute osseous abnormality. IMPRESSION: No acute pulmonary findings.
--- NOTE | 2016-09-28 01:00 | NUR ---
NURSING NOTE: [facility] NOT ALLOWING RN TO DOCUMENT ASSESSMENT. ASSESSMENT IS FOLLOWS -- NURSING ASSESSMENT: NEUROLOGICAL: PT A&O X3, BLE WEAKNESS - OOB AX1 W RW, HX SEIZURES - PRECAUTIONS IN PLACE. PT CALM/COOPERATIVE. CARDIAC: WNL - VSS, AFEBRILE. RESPIRATORY: ON RA. DRY COUGH NOTED. LUNGS DIMINISHED THROUGHOUT. GASTROINTESTINAL: ABDOMEN D/S, +BOWEL SOUNDS, +FLATUS, NO BM THIS SHIFT. FLEET OIL ENEMA ORDERED FOR AM URINARY: PT VOIDS ON OWN IN BSC. PER PT - SOME BURNING WITH URINATION. SKIN: REDNESS NOTED TO BLE. WARM TO TOUCH. ECCYMOTIC AREAS. BLE EDEMA +1.
--- NOTE | 2016-09-28 06:28 | PN- Housestaff ---
GUY LEONG,BEBE 09/28/16 0628: Subjective Follow-up For: fecal impaction lower urinary tract infection Subjective: I saw and examined the patient today morning She found to have significant productive cough in the night, obtained a CXR and nasal swab. In addition she had chronic cough from her GERD. She reports good bowel movements, still had some discomfort. Remains afebrile overnight. Had some burning with urination. Review of Systems Constitutional: Reports: see HPI. Comments: ROS negative except the above. Objective Last 24 Hrs of Vital Signs/I&O Vital Signs Date Time Temp Pulse Resp B/P B/P Pulse O2 O2 Flow FiO2 Mean Ox Delivery Rate 09/28 0634 98.5 82 20 136/80 96 Room Air 09/28 0000 97 Room Air 09/27 2209 98.3 88 20 110/60 97 Room Air 09/27 1423 98.4 77 20 136/72 98 09/27 0956 68 142/78 09/27 0955 84 142/78 Intake & Output 09/28 0800 09/28 0000 09/27 1600 Intake Total 200 720 Output Total 350 551 600 Balance -150 -551 120 Intake, Oral 200 720 Number 0 3 1 Bowel Movements Output, Stool 1 Output, Urine 350 550 600 Physical Exam General Appearance: Alert, Oriented X3, Cooperative, No Acute Distress Skin: No Rashes, No Breakdown HEENT: Atraumatic, PERRLA, EOMI Cardiovascular: Normal S1, Normal S2 Lungs: Clear to Auscultation, Normal Air Movement Abdomen: Soft, hypoactive bowel sounds, tenderness in the hypgastric region Neurological: Normal Tone, Sensation Intact, Cranial Nerves 3-12 NL Extremities: No Clubbing, No Cyanosis, 2+ edema with chronic venous stasis changes. Vascular: Pulses Symmetrical Current Medications: Current Medications Sig/Flory Start time Last Medication Dose Route Stop Time Status Admin Acetaminophen 650 MG Q6P PRN 09/25 0115 AC PO Aspirin Buffered 81 MG DAILY 09/25 1000 AC 09/27 PO 0953 Atorvastatin Calcium 20 MG 1700 09/25 1700 AC 05/ PO 1650 Docusate Sodium 100 MG DAILY 09/27 1557 AC 09/27 PO 1650 Enoxaparin Sodium 40 MG DAILY 09/25 1000 AC 05 SC 0953 Famotidine 20 MG DAILY 09/25 1000 AC 05/10 PO 0953 Guaifenesin 10 ML Q6P PRN 09/27 2245 AC 09/27 PO 2250 Ibuprofen 600 MG Q6P PRN 09/25 0115 AC PO Insulin Aspart 0 TIDAC 09/25 0800 AC 09/26 SC 1652 Ketorolac 15 MG Q6P PRN 09/25 0115 AC 09/25 Tromethamine IV 0823 Levothyroxine Sodium 0.1 MG DAILY AC 09/25 0700 AC 09/28 PO 0543 Losartan Potassium 50 MG DAILY 09/25 1000 AC 09/27 PO 0955 Metoprolol Tartrate 25 MG DAILY 09/25 1000 AC 09/27 PO 0956 Nitroglycerin 0.4 MG DAILY 09/25 1000 AC 09/27 TOP 0954 Non-Formulary 0 SEE ADMIN CRITERIA 09/27 1500 DC Medication ANY Nystatin 1 SANAZ BID PRN 09/25 0100 AC 09/25 TOP 1030 Phenobarbital 97.2 MG QPM 09/25 2200 AC 09/27 PO 2142 Phenytoin 200 MG BID 09/25 0052 AC 09/27 PO 2142 Polycarbophil 1,250 MG DAILY 09/26 1000 AC 09/27 PO 0953 Polyethylene Glycol 17 GM DAILY 09/25 1000 AC 09/27 PO 0953 Sodium Phosphate 1 UNIT ONCE ONE 09/28 08 AC OH 09/28 0801 Sodium Phosphate 1 UNIT ONCE ONE 09/27 0900 DC 09/27 OH 09/27 0901 1206 Last 24 Hrs of Lab/[place] Results Last 24 Hrs of Labs/Mics: Laboratory Tests 09/28/16 0650: Sodium Pending, Potassium Pending, Chloride Pending, Carbon Dioxide Pending, Anion Gap Pending, BUN Pending, Creatinine Pending, BUN/Creatinine Ratio Pending , Magnesium Pending Microbiology 09/27 2317 NASOPHARYN: Influenza Virus A & B Rapid Smear - COMP 09/27 1355 STOOL: Clostridium difficile Toxin A & B - RECD Assessment/Plan Assessment: This is a 80-year-old female with PMH significant for seizures, lower extremity swelling on lasix, aortic stenosis, CAD, HTN, asthma, GERD, hiatal hernia, osteoarthritis, osteoporosis, type 2 DM, hypothyroidism, 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 scan showed 1. There is significant redundancy of the sigmoid colon. A significant amount of retained stool is identified throughout the colon, indicative of constipation. The rectal vault is filled with stool. There is no circumferential rectal wall thickening to suggest stercoral colitis. No bowel wall pneumatosis is identified. There are no findings indicative ofperforation. 2. Cholelithiasis, without secondary signs of acute cholecystitis. Fecal impaction H/o chroinic constipation with recent diarrhea that progressively worsened. As a consequence of this, stopped taking psyllium which she usually takes for her constipation. * Continues to have persistent colonic distention on imaging and abdominal discomfort despite all efforts. * Discontinued Enemas, Started on miralax BID, Senna S, Colace daily * 1 Gallon of Golytely in an attempt to move bowels. * Will try manual disimpaction tomorrow if not responsive. * GI on board - appreciate their recommendations. Pseudomonas Lower urinary tract Infection She also states that she has had multiple UTIs in the past, usually 2-3 per year . She states that over the last 3 or 4 months, she feels her urination is different. She denies any specific dysuria, malodor, blood, urgency or frequency. She does admit to some incontinence which has been ongoing for years as she has spinal stenosis. Imaging ruled out pyelonephritis. * Urine analysis showed esterases, WBC, epithelial cells, bacteria. * Patient received 1 dose of IV ceftriaxone in the ER. * Her urine cultures grew pseudomonas - pansensitive -- Had dysuria with hypogastric tenderness. * Started on ciproflaxacin 500mg BID - for a total of 5days. Chronic stable conditions Seizures: phenobarbital 97.2 at bedtime, phenytoin 200mg BID daily Coronary artery disease : Aspirin 81mg daily. Hypertension: metoprolol tartarate 25mg daily, losartan 50mg daily (on valasaratan at home) GERD: famotidine Diabetes mellitus: Insulin sliding scale - sugars are under control with low dose sliding scale Normocytic Anemia : H&H 03/20 - remains stable. Lower extremity edema: Lasix on hold H/O DVT: Coumadin (recurrent dvt) was discontinued for history of GI bleed in may 2015. Full code DVT prophylaxis-Lovenox Problem List: 1. Fecal impaction 2. UTI (urinary tract infection) 3. Diarrhea 4. Cough Pain Ratin Pain Location: abdomen Pain Goal: Pain 4 or less Pain Plan: tylenol prn Tomorrow's Labs & Rationales: none SHAHRIAR STAPLES MDIDAMckenzie 09/28/16 0952: Attending MD Review Statement Attending Statement Attending MD Statement: examined this patient, discuss w/resident/PA/JAVA SYSTEMS ANALYST, agreed w/resident/PA/JAVA SYSTEMS ANALYST, reviewed EMR data (avail), discussed with nursing, discussed with case mgmt, amended to note Attending Assessment/Plan: Patient seen and examined. Lying in bed. Not in acute distress. Despite to enema treatments yesterday repeat abdominal x-ray continues to show colonic distention and fecal retention. She denies any abdominal pain. Denies nausea or vomiting. Today she complains of dysuria. On examination abdomen is soft, with normal bowel sounds. She has mild suprapubic tenderness. Recommendations: -Decide aggressive bowel regimen she continues to have fecal retention. -Increase her MiraLAX to twice daily. Add Senokot to regimen. Continue Colace. -Follow-up with the gastroenterology service due to persistent colonic distention. -Begin treatment for her cystitis as she is symptomatic at present. Complete 5 days of antibiotic therapy. -Mobilize patient. with normal bowel sounds. She has mild suprapubic tenderness. Recommendations: -Decide aggressive bowel regimen she continues to have fecal retention. -Increase her MiraLAX to twice daily. Add Senokot to regimen. Continue Colace. -Follow-up with the gastroenterology service due to persistent colonic distention. -Begin treatment for her cystitis as she is symptomatic at present. Complete 5 days of antibiotic therapy. -Mobilize patient.
[2016-09-28 06:34] VITALS: BP 136/80
[2016-09-28 13:46] VITALS: BP 122/70
--- NOTE | 2016-09-28 18:45 | NUR ---
184-PER DR. VILLAREAL, GOLYTELY TO BE GIVEN A LAXATIVE FOR SEVERE CONSTIPATION. IF PT COMPLAINING OF PAIN, OR HAS A CHANGE IN VITAL SIGNS, STOP GOLYTELY AND CALL SLITTER SERVICE AND SETTER.
[2016-09-28 23:31] VITALS: BP 122/70
[2016-09-29 06:30] VITALS: BP 132/76
--- NOTE | 2016-09-29 07:09 | PN- Housestaff ---
GUY LEONG,BEBE 09/29/16 0709: Subjective Follow-up For: fecal impaction Subjective: I saw the patient today morning She is still sitting on the comode. Had 5 bowel movements so far. Reports feeling better, but still had abdominal discomfort. No abdominal pain, shortness of breath, fever, dysuria. Review of Systems Constitutional: Reports: see HPI. Comments: ROS negative except the above. Objective Last 24 Hrs of Vital Signs/I&O Vital Signs Date Time Temp Pulse Resp B/P B/P Pulse O2 O2 Flow FiO2 Mean Ox Delivery Rate 09/29 0630 97.8 64 20 132/76 95 Room Air 09/28 2331 97.3 68 20 122/70 96 Room Air 09/28 1346 98.0 58 20 122/70 98 Room Air 09/28 1100 80 130/82 09/28 1100 80 130/82 Intake & Output 09/29 0800 09/29 0000 09/28 1600 Intake Total 720 Output Total 395 886 3099 Balance -400 -300 -280 Intake, Oral 720 Number 3 2 Bowel Movements Output, Urine 589 076 2019 Physical Exam General Appearance: Alert, Oriented X3, Cooperative Skin: No Rashes, No Breakdown, chronic venous stasis changes in the legs HEENT: Atraumatic, PERRLA, EOMI Neck: Supple Cardiovascular: Normal S1, Normal S2 Lungs: Clear to Auscultation, Normal Air Movement Abdomen: Normal Bowel Sounds, No Tenderness, protruberent but soft Neurological: Normal Speech, Strength at 5/5 X4 Ext, Normal Tone, Sensation Intact, Cranial Nerves 3-12 NL Extremities: No Clubbing, No Cyanosis, 3+ pitting edema Vascular: Pulses Symmetrical Current Medications: Current Medications Sig/Flory Start time Last Medication Dose Route Stop Time Status Admin Acetaminophen 650 MG Q6P PRN 09/25 0115 AC PO Aspirin Buffered 81 MG DAILY 09/25 1000 AC 09/28 PO 1058 Atorvastatin Calcium 20 MG 1700 09/25 1700 AC 09/28 PO 1649 Ciprofloxacin 500 MG BID 09/28 1000 AC 09/28 PO 10/02 0959 2316 Docusate Sodium 100 MG DAILY 09/27 1557 AC 09/28 PO 1058 Enoxaparin Sodium 40 MG DAILY 09/25 1000 AC 09/28 SC 1059 Famotidine 20 MG DAILY 09/25 1000 AC 09/28 PO 1058 Guaifenesin 10 ML Q6P PRN 09/27 2245 AC 09/27 PO 2250 Ibuprofen 600 MG Q6P PRN 09/25 0115 AC PO Insulin Aspart 0 TIDAC 09/25 0800 AC 09/26 SC 1652 Ketorolac 15 MG Q6P PRN 09/25 0115 AC 09/25 Tromethamine IV 0823 Levothyroxine Sodium 0.1 MG DAILY AC 09/25 0700 AC 09/29 PO 0626 Losartan Potassium 50 MG DAILY 09/25 1000 AC 09/28 PO 1100 Metoprolol Tartrate 25 MG DAILY 09/25 1000 AC 09/28 PO 1100 Nitroglycerin 0.4 MG DAILY 09/25 1000 AC 09/28 TOP 1058 Nystatin 1 SANAZ BID PRN 09/25 0100 DC 09/25 TOP 1030 Patient Medication 1 ED .STK-MED ONE 09/28 1401 DC Teaching ED 09/28 1402 Phenobarbital 97.2 MG QPM 09/25 2200 AC 09/28 PO 2315 Phenytoin 200 MG BID 09/25 0052 AC 09/28 PO 2316 Polycarbophil 1,250 MG DAILY 09/26 1000 AC 09/28 PO 1058 Polyethylene Glycol 1 GAL ONCE ONE 09/28 1615 DC 09/28 PO 09/28 1616 1843 Polyethylene Glycol 17 GM BID 09/28 1000 AC 09/28 PO 2316 Polyethylene Glycol 17 GM DAILY 09/25 1000 DC 09/27 PO 0953 Senna/Docusate Sodium 2 TAB DAILY 09/29 1000 AC PO Sodium Phosphate 1 UNIT ONCE ONE 09/28 0800 DC 09/28 CT 09/28 0801 0759 Assessment/Plan Assessment: This is a 80-year-old female with PMH significant for seizures, lower extremity swelling on lasix, aortic stenosis, CAD, HTN, asthma, GERD, hiatal hernia, osteoarthritis, osteoporosis, type 2 DM, hypothyroidism, 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 scan showed 1. There is significant redundancy of the sigmoid colon. A significant amount of retained stool is identified throughout the colon, indicative of constipation. The rectal vault is filled with stool. There is no circumferential rectal wall thickening to suggest stercoral colitis. No bowel wall pneumatosis is identified. There are no findings indicative ofperforation. 2. Cholelithiasis, without secondary signs of acute cholecystitis. Fecal impaction H/o chroinic constipation with recent diarrhea that progressively worsened. As a consequence of this, stopped taking psyllium which she usually takes for her constipation. * Continues to have persistent colonic distention on imaging and abdominal discomfort despite all efforts. * Discontinued Enemas, continue on miralax BID, Senna S, Colace daily * Golytely given yesterday responded well - still having persistent discomfort. * We will repeat Abdominal Xray at a later part of the day. * GI on board - appreciate their recommendations. * Anticipated discharge tomorrow. Pseudomonas Lower urinary tract Infection She also states that she has had multiple UTIs in the past, usually 2-3 per year . She states that over the last 3 or 4 months, she feels her urination is different. She denies any specific dysuria, malodor, blood, urgency or frequency. She does admit to some incontinence which has been ongoing for years as she has spinal stenosis. Imaging ruled out pyelonephritis. * Urine analysis showed esterases, WBC, epithelial cells, bacteria. * Patient received 1 dose of IV ceftriaxone in the ER. * Her urine cultures grew pseudomonas - pansensitive -- Had dysuria with hypogastric tenderness. * Started on ciproflaxacin 500mg BID - 2/5days. Chronic stable conditions Seizures: phenobarbital 97.2 at bedtime, phenytoin 200mg BID daily Coronary artery disease : Aspirin 81mg daily. Hypertension: metoprolol tartarate 25mg daily, losartan 50mg daily (on valasaratan at home) GERD: famotidine Diabetes mellitus: Insulin sliding scale - sugars are under control with low dose sliding scale Normocytic Anemia : H&H 03/20 - remains stable. Lower extremity edema: Lasix on hold H/O DVT: Coumadin (recurrent dvt) was discontinued for history of GI bleed in may 2015. Full code DVT prophylaxis-Lovenox Problem List: 1. UTI (urinary tract infection) 2. Fecal impaction Pain Ratin Pain Location: abdomen Pain Goal: Pain 4 or less Pain Plan: tylenol prn Tomorrow's Labs & Rationales: bep to monitor electrolytes after GI loses JHOAN LEONG,JAGRUTI 09/29/16 1142: Attending MD Review Statement Attending Statement Attending MD Statement: examined this patient, discuss w/resident/PA/RISK DEVELOPER, agreed w/resident/PA/RISK DEVELOPER, reviewed EMR data (avail), discussed with nursing, discussed with case mgmt, amended to note Attending Assessment/Plan: Patient seen and examined. She was admitted on [facility] yesterday per recommendations of gastroenterology service for management of her fecal impaction. She has been moving her bowels since. She reports feeling less abdominal discomfort today. She still having bowel movements this morning. On examination abdomen is soft and nontender. Bowel sounds are normal. She denies any dysuria today. Recommendations: -Repeat abdominal x-ray later this afternoon after further bowel movements today. -If there is evidence of less distention today she will be anticipated for discharge home tomorrow. --This has been discussed with the patient and her daughter and they're in agreement. -Continue antibiotic therapy to complete 5 days.
[2016-09-29 14:10] VITALS: BP 140/80
[2016-09-29] MEDS ORDERED: COLACE100 M1 PO (15:11)
[2016-09-29] MEDS ORDERED: CIPRO500 M1 PO (15:17)
--- NOTE | 2016-09-29 21:23 | NUR ---
NITROPATCH REMOVED 12 ON 12 OFF
--- NOTE | 2016-09-29 21:41 | RADIOLOGY REPORT ---
EXAMINATION: XR ABDOMEN MULTIPLE VIEWS CLINICAL INDICATION: Follow-up fecal impaction. Post enema. COMPARISON: Abdomen radiograph 09/27/2016, 8:33 PM TECHNIQUE: 09/29/2016 7:01 PM single view abdomen FINDINGS: The volume of stool has diminished significantly since prior exam 09/27/2016. There is still some stool in the left colon. Gas throughout the large and small bowel. No dilated bowel loop. Nonobstructive bowel pattern. Dextroscoliosis of lumbar spine with multilevel disc height narrowing and endplate spurs of the vertebrae. Lung bases are clear. IMPRESSION: Volume of stool has diminished since exam of 09/27/2016.
[2016-09-29 22:25] VITALS: BP 116/62
[2016-09-30 07:38] VITALS: BP 130/74
--- NOTE | 2016-09-30 07:43 | PN- Housestaff ---
Subjective Follow-up For: FECAL IMPACTION Subjective: I saw and examined the patient today morning She had 3 bowel movements so far. Feeling much better although there is no complete relief. She feels comfortable to go home. No overnight events, no pain. Her daughter comes in the afternoon. Review of Systems Constitutional: Reports: see HPI. Comments: ROS negative except the above. Objective Last 24 Hrs of Vital Signs/I&O Vital Signs Date Time Temp Pulse Resp B/P B/P Pulse O2 O2 Flow FiO2 Mean Ox Delivery Rate 09/30 0738 98.5 66 20 130/74 95 Room Air 09/29 2225 97.9 77 20 116/62 96 Room Air 09/29 1410 98.3 58 20 140/80 94 Room Air 09/29 1010 68 130/82 Intake & Output 09/30 0800 09/30 0000 09/29 1600 Intake Total 960 600 Output Total 351 1100 Balance 609 -500 Intake, IV 0 0 Intake, Oral 960 600 Number 1 11 Bowel Movements Output, Stool 1 Output, Urine 350 1100 Patient 92.533 kg Weight Physical Exam General Appearance: Alert, Oriented X3, Cooperative, No Acute Distress Skin: No Rashes HEENT: Atraumatic, PERRLA, EOMI Neck: Supple Cardiovascular: Normal S1, Normal S2 Lungs: Clear to Auscultation, Normal Air Movement Abdomen: Normal Bowel Sounds, Soft, No Tenderness Neurological: Normal Speech, Strength at 5/5 X4 Ext, Normal Tone, Sensation Intact Extremities: No Clubbing, No Cyanosis, 2+ edema with chronic venous stasis changes Vascular: Pulses Symmetrical Current Medications: Current Medications Sig/Flory Start time Last Medication Dose Route Stop Time Status Admin Acetaminophen 650 MG Q6P PRN 09/25 0115 AC PO Aspirin Buffered 81 MG DAILY 09/25 1000 AC 09/29 PO 1007 Atorvastatin Calcium 20 MG 1700 09/25 1700 AC 05 PO 1624 Ciprofloxacin 500 MG BID 09/28 1000 AC / PO 10/02 0959 2119 Docusate Sodium 100 MG DAILY 09/27 1557 AC 09/29 PO 1007 Enoxaparin Sodium 40 MG DAILY 09/25 1000 AC 09/29 SC 1006 Famotidine 20 MG DAILY 09/25 1000 AC 09/29 PO 1006 Guaifenesin 10 ML Q6P PRN 09/27 2245 AC 09/27 PO 2250 Ibuprofen 600 MG Q6P PRN 09/25 0115 AC PO Insulin Aspart 0 TIDAC 09/25 0800 AC 09/26 SC 1652 Ketorolac 15 MG Q6P PRN 09/25 0115 AC 09/25 Tromethamine IV 0823 Levothyroxine Sodium 0.1 MG DAILY AC 09/25 0700 AC 09/30 PO 0707 Losartan Potassium 50 MG DAILY 09/25 1000 AC 09/29 PO 1010 Metoprolol Tartrate 25 MG DAILY 09/25 1000 AC 09/29 PO 1007 Nitroglycerin 0.4 MG DAILY 09/25 1000 AC 09/29 TOP 1006 Phenobarbital 97.2 MG QPM 09/25 2200 AC 09/29 PO 2118 Phenytoin 200 MG BID 09/25 0052 AC 09/29 PO 2118 Polycarbophil 1,250 MG DAILY 09/26 1000 AC 09/29 PO 1006 Polyethylene Glycol 17 GM BID 09/28 1000 AC 09/29 PO 2119 Senna/Docusate Sodium 2 TAB DAILY 09/29 1000 AC 09/29 PO 1006 Assessment/Plan Assessment: This is a 80-year-old female with PMH significant for seizures, lower extremity swelling on lasix, aortic stenosis, CAD, HTN, asthma, GERD, hiatal hernia, osteoarthritis, osteoporosis, type 2 DM, hypothyroidism, 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 CT scan showed 1. There is significant redundancy of the sigmoid colon. A significant amount of retained stool is identified throughout the colon, indicative of constipation. The rectal vault is filled with stool. There is no circumferential rectal wall thickening to suggest stercoral colitis. No bowel wall pneumatosis is identified. There are no findings indicative ofperforation. 2. Cholelithiasis, without secondary signs of acute cholecystitis. Fecal impaction H/o chroinic constipation with recent diarrhea that progressively worsened. As a consequence of this, stopped taking psyllium which she usually takes for her constipation. * With all the interventions including miralax, colace, golytely -- patient had satisfactory amount of bowel movements (not complete). * AXR 09/29/16 shows decrease in colonic distention, improvement from the time of admission. * GI on board - appreciate their recommendations. * PT recommended to go home with health services - stable for discharge today. * She will follow up with Dr. Gerber, Dr. Cash, as outpatient. Pseudomonas Lower urinary tract Infection She also states that she has had multiple UTIs in the past, usually 2-3 per year . She states that over the last 3 or 4 months, she feels her urination is different. She denies any specific dysuria, malodor, blood, urgency or frequency. She does admit to some incontinence which has been ongoing for years as she has spinal stenosis. Imaging ruled out pyelonephritis. * Urine analysis showed esterases, WBC, epithelial cells, bacteria. * Patient received 1 dose of IV ceftriaxone in the ER. * Her urine cultures grew pseudomonas - pansensitive -- Had dysuria with hypogastric tenderness. * continue ciproflaxacin 500mg BID - 3/5days. Chronic stable conditions Seizures: phenobarbital 97.2 at bedtime, phenytoin 200mg BID daily Coronary artery disease : Aspirin 81mg daily. Hypertension: metoprolol tartarate 25mg daily, losartan 50mg daily (on valasaratan at home) GERD: famotidine Diabetes mellitus: Insulin sliding scale - sugars are under control with low dose sliding scale Normocytic Anemia : H&H 03/20 - remains stable. Lower extremity edema: Lasix on hold H/O DVT: Coumadin (recurrent dvt) was discontinued for history of GI bleed in may 2015. Full code DVT prophylaxis-Lovenox Problem List: 1. Diarrhea 2. Swelling of lower extremity 3. Chronic anemia 4. Diverticulosis of colon 5. Fecal impaction Pain Ratin Pain Location: abdomen Pain Goal: Pain 4 or less Pain Plan: tylenol prn Tomorrow's Labs & Rationales: none
[2016-09-30] MEDS ORDERED: MIRALAX17 G1 PO (10:23)
[2016-09-30] MEDS ORDERED: MIRALAX119 GM PO (10:26)
[2016-09-30] MEDS ORDERED: FIBERCON625 M1 PO (10:36)
[2016-09-30 14:18] VITALS: BP 138/70
--- NOTE | 2016-09-30 15:09 | Discharge Summary ---
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 CT scan showed 1. There is significant redundancy of the sigmoid colon. A significant amount of retained stool is identified throughout the colon, indicative of constipation. The rectal vault is filled with stool. There is no circumferential rectal wall thickening to suggest stercoral colitis. No bowel wall pneumatosis is identified. There are no findings indicative ofperforation. 2. Cholelithiasis, without secondary signs of acute cholecystitis. Fecal impaction Initially started on miralax, coalce, docusate for her constipation. As they didnt improve patient condition, GI consulted, started on enemas alternatively as per their recommendations. Despite these patient abdominal X ray repeatedly shows similar findings without significant improvement. Patient is having bowel movements through out this time. As she is not getting better - we gave her a gallon of Golytely on 09/28/16 which helped her with evacuating her bowels. AXR on the next day 09/29/16 still shows stool but significantly diminished. She was provided with miralax BID, Colace 100mg BID, Fibercon 625mg daily to help with regular bowel movements As we suspected pelvic floor dysfunction as a possible factor that has added effect, we placed a colorectal surgery consult and they recommended outpatient evaluation. We referred to for outpatient evaluaton. Pseudomonas Lower urinary tract Infection History of recurrent UTI (2-3/yr), had nocturia, foul smelling urine at presentation. Her urine cultures are positive for pseudomonas without any systemic symptoms. Started on Ciprofloxacin 500mg BID for 5 days - completed by 10/02/16. Chronic stable conditions Seizures: phenobarbital 97.2 at bedtime, phenytoin 200mg BID daily Coronary artery disease : Aspirin 81mg daily simvastatin 40mg. Hypertension: metoprolol tartarate 25mg daily, losartan 50mg daily (on valasaratan at home) GERD: famotidine Diabetes mellitus: Insulin sliding scale - sugars are under control with low dose sliding scale - metformin restarted at discharge. Normocytic Anemia : H&H 03/20 - remains stable. Lower extremity edema: Lasix on hold - continued at discharge. H/O DVT: Coumadin (recurrent dvt) was discontinued for history of GI bleed in may 2015. Full code DVT prophylaxis-Lovenox Complications: NONE Allergies: Uncoded Allergies: INHALER (UNSURE NAME) (HIVES 09/07/11) Significant Procedures: NONE Pertinent Lab Results: as above Disposition Summary Disposition Principal Diagnosis: FECAL IMPACTION Additional Diagnosis: Pseudomonal LUTI Seizures HTN GERD DM Normocytic anemia H/O DVT Discharge Disposition: home health services Discharge Instructions General Discharge Information Code Status: Full Code Patient's Diet: High fiber diet Patient's Activity: Acitivity as tolerated Follow-Up Instructions/Appts: Please follow up with your in a week Please follow up with as an outpatient Please follow up with in a week regarding further evaluation of constipation Please followup with [facility]. Medications at Discharge Discharge Medications: Continue taking these medications: Levothyroxine Sodium (Levothyroxine Sodium) 100 MCG TABLET 1 Tablet ORAL DAILY Qty = 90 Comments: Last Taken: 09/30/16 Time: 0700 AM Metformin HCl (Metformin HCl) 500 MG TABLET 1 Tablet ORAL TWICE DAILY Qty = 60 Comments: NOT GIVEN IN HOSPITAL. BEGIN ON 10/01/16. Phenobarbital (Phenobarbital) 32.4 MG TABLET 3 Tablet ORAL Every night Qty = 90 Comments: Last Taken: 09/29/16 Time: 0900 PM Famotidine (Famotidine) 20 MG TABLET 1 Tablet ORAL DAILY Qty = 90 Comments: Last Taken: 09/30/16 Time: 1000 AM Simvastatin (Simvastatin*) 40 MG TABLET 1 Tablet ORAL Every night Qty = 90 Comments: Last Taken: 09/29/16 Time: 0430 PM Potassium Chloride (Potassium Chloride) 10 MEQ TAB.ER.PRT 1 Tablet ORAL DAILY Qty = 30 Comments: Last Taken: 09/30/16 Time: 1000 AM Phenytoin Sodium Extended (Phenytoin Sodium Extended) 100 MG CAPSULE 2 Capsule ORAL TWICE DAILY Qty = 360 Comments: Last Taken: 09/30/16 Time: 1000 AM Estradiol (Estrace) 0.01 % CREAM.APPL 1 Application VAGINAL DAILY Qty = 43 Comments: NOT GIVEN Nitroglycerin (Nitroglycerin Patch) 0.4 MG/HOUR PATCH.TD24 1 PATCH On the skin DAILY Qty = 90 Comments: Last Taken: 09/30/16 Time: 1000 AM PLACED ON LEFT CHEST WALL. Furosemide (Furosemide) 40 MG TABLET 1 Tablet ORAL DAILY Qty = 90 Comments: Last Taken: 09/30/16 Time: 1000 AM Metoprolol Tartrate (Metoprolol Tartrate) 25 MG TABLET 1 Tablet ORAL DAILY Qty = 90 Comments: Last Taken: 09/30/16 Time: 1000 AM Ciclopirox Olamine (Ciclopirox) 0.77 % SUSPENSION 1 Application On the skin DAILY Qty = 180 Comments: NOT GIVEN Valsartan (Valsartan) 80 MG TABLET 1 Tablet ORAL DAILY Qty = 90 Comments: Last Taken: 09/30/16 Time: 1000 AM Aspirin (Ecotrin*) 81 MG TABLET.DR 1 Tablet ORAL DAILY Comments: Last Taken: 09/30/16 Time: 1000 AM Start taking the following new medications: Calcium Polycarbophil (Fibercon) 625 MG TABLET 1 Tablet ORAL TWICE DAILY Qty = 30 No Refills Instructions: take twice a day Comments: Last Taken: 09/30/16 Time: 1000 AM Polyethylene Glycol 3350 (Miralax) 17 GRAM/DOSE POWDER 17 Gram ORAL TWICE DAILY Qty = 60 No Refills Comments: Last Taken: 09/30/16 Time: 1000 AM TAKE NEXT DOSE AT BEDTIME 09/30/16 Docusate Sodium (Colace) 100 MG CAPSULE 1 Capsule ORAL TWICE DAILY as needed for constipation Qty = 30 No Refills Comments: Last Taken: 09/30/16 Time: 1000 AM Ciprofloxacin HCl (Cipro) 500 MG TABLET 1 Tablet ORAL TWICE DAILY Qty = 5 No Refills Comments: Last Taken: 09/30/16 Time: 1000 AM Copies To: CHINTAN CUBA DO,CLAUDIA Ramirez; SOFIA LEONG,NORBERTO Sanchez; JACOB LEONG,JAZ Goodwin Attending MD Review Statement Documenting Attending: JAGRUTI STAPLES M.D Other Findings: I have reviewed the discharge summary
== END 2016-09-30 16:16 | disposition home health service (06) | DRG 389 ==
LOC: ERH 14:55 → ERHI 21:15 → 2NA 21:15 → ENRESERV 23:56 → 2NA 09-25 01:56 → ENPENDDIS 09-30 10:12 → 2NA 09-30 16:16
PROVIDERS: Emergency Medicine; Internal Medicine Cardiovascular Disease; Internal Medicine Interventional Cardiology; ADMIT Student in an Organized Health Care Education/Training Program
DX: K56.41 Fecal impaction (principal); N39.0 Urinary tract infection, site not specified; E86.0 Dehydration; R56.9 Unspecified convulsions; E87.1 Hypo-osmolality and hyponatremia; B96.5 Pseudomonas (aeruginosa) (mallei) (pseudomallei) as the cause of diseases classified elsewhere; E11.9 Type 2 diabetes mellitus without complications; I10 Essential (primary) hypertension; Z68.41 Body mass index [BMI] 40.0-44.9, adult; I35.0 Nonrheumatic aortic (valve) stenosis; I25.10 Atherosclerotic heart disease of native coronary artery without angina pectoris; K21.9 Gastro-esophageal reflux disease without esophagitis; J45.909 Unspecified asthma, uncomplicated; K44.9 Diaphragmatic hernia without obstruction or gangrene; E03.9 Hypothyroidism, unspecified; Z79.84 Long term (current) use of oral hypoglycemic drugs; D50.9 Iron deficiency anemia, unspecified; K57.30 Diverticulosis of large intestine without perforation or abscess without bleeding; E66.9 Obesity, unspecified; Z86.718 Personal history of other venous thrombosis and embolism
CPT/HCPCS: 2NASP; 80184; 84133; 84300; ERO; 74020; 74177; 81001; 82436; 82570; 87040; 87045; 87086; 87804; 87804-59; 96374; 97116-GO; 97161-GP; 97530-GO; J0696; J1650

== ENCOUNTER 2016-11-28 13:45 | Emergency (ER) | payer OTHER, MEDICARE ==
[~2016-11-28] VITALS: Ht 149.9 cm; Wt 93.0 kg
[~2016-11-28 13:45] MED LIST changes: +ASPIRIN EC81 M1 PO; +CICLOPIROX60 ML TOP; +CIPRO500 M1 PO; +COLACE100 M1 PO; +ESTRACE42.5 GM VG; +FAMOTIDINE20 M1 PO; +FIBERCON625 M1 PO; +FUROSEMIDE40 M1 PO; +LEVOTHYROXINE100 MC1 PO; +METFORMIN HCL500 M3 PO; +METOPROLOL TART25 M1 PO; +MIRALAX119 GM PO; +MIRALAX17 G1 PO; +NITROGLYCERIN1 EACH TOP; +PHENOBARBITAL32.4 M1 PO; +PHENYTOIN SODI100 MG PO; +POTASSIUM CHLO10 ME5 PO; +SIMVASTATIN40 M1 PO; +VALSARTAN80 M1 PO
--- NOTE | 2016-11-28 14:46 | ED GENERAL ADULT ---
History of Present Illness General Chief Complaint: Fall Stated Complaint: FALL Source: patient, family Exam Limitations: no limitations Vital Signs & Intake/Output Vital Signs & Intake/Output Vital Signs Date Time Temp Pulse Resp B/P B/P Pulse O2 O2 Flow FiO2 Mean Ox Delivery Rate 11/28 1622 97.2 54 113/60 95 Room Air 11/28 1358 97.0 57 20 104/60 96 Room Air Room Air Allergies Uncoded Allergies: INHALER (UNSURE NAME) (HIVES 09/07/11) Reconcile Medications Aspirin (Ecotrin*) 81 MG TABLET.DR 1 TAB PO DAILY HEART/BLOOD (Reported) Calcium Polycarbophil (Fibercon) 625 MG TABLET 1 TAB PO BID constipation take twice a day Ciclopirox Olamine (Ciclopirox) 0.77 % SUSPENSION 1 SANAZ TOP DAILY GROIN ( Reported) Docusate Sodium (Colace) 100 MG CAPSULE 1 CAP PO BID PRN constipation Estradiol (Estrace) 0.01 % CREAM.APPL 1 SANAZ VG 2XW HRT (Reported) Famotidine 20 MG TABLET 1 TAB PO DAILY GI (Reported) Furosemide 40 MG TABLET 1 TAB PO DAILY DIURETIC (Reported) Levothyroxine Sodium 100 MCG TABLET 1 TAB PO DAILY THYROID (Reported) Metformin HCl 500 MG TABLET 1 TAB PO BID DM (Reported) Metoprolol Tartrate 25 MG TABLET 1 TAB PO DAILY HEART/BP (Reported) Nitroglycerin (Nitroglycerin Patch) 0.4 MG/HOUR PATCH.TD24 1 PATCH TOP DAILY HEART (Reported) Oxycodone HCl/Acetaminophen (Oxycodone-Acetaminophen 5-325) 5 MG-325 MG TABLET 1 TAB PO BIDP PRN PAIN (Reported) Phenobarbital 32.4 MG TABLET 3 TAB PO QPM SEIZURES (Reported) Phenytoin Sodium Extended 100 MG CAPSULE 2 CAP PO QPM SEIZURES (Reported) Phenytoin Sodium Extended 100 MG CAPSULE 1 CAP PO QAM SEIZURES (Reported) Polyethylene Glycol 3350 (Miralax) 17 GRAM/DOSE POWDER 17 GM PO BID constipation Potassium Chloride 10 MEQ TAB.ER.PRT 1 TAB PO DAILY SUPPLEMENT (Reported) Simvastatin (Simvastatin*) 40 MG TABLET 1 TAB PO QPM CHOLESTEROL (Reported) Valsartan 80 MG TABLET 1 TAB PO DAILY BP (Reported) Triage Note: PT TO ED S/P FALL YESTERDAY, "HOLDING ON TO THE SINK AND GOT MY LEGS TWISTED". TO ED WITH C/O RIGHT WRIST SORENESS AND RED SWOLLEN RIGHT MIDDLE FINGER. Triage Nurses Notes Reviewed? yes Onset: Abrupt Duration: day(s): (1) Timing: no prior history Injury Environment: home Severity: moderate Modifying Factors: Improves With: immobilization. Worsens With: movement. HPI: Patient is an 80-year-old female presenting to the emergency department with chief complaint of right wrist and right middle finger pain after falling last night. Patient reports that she was in the bathroom and twisted and tripped over her own legs and fell to the ground landing on her right wrist and right middle finger. Pain is currently moderate achy throbbing worse with movement. Denies any head injury. No LOC. Denies any chest pain palpitations or shortness of breath. No precipitating factors prior to the fall. (ALEISHA BARAHONA) Past History Travel History Traveled to [place] past 21 day No Medical History Any Pertinent Medical History? see below for history Neurological: seizure EENT: cataracts, hearing loss Cardiovascular: angina, aortic stenosis, CAD, hypertension, HEART MURMUR Respiratory: asthma, bronchitis, pneumonia Gastrointestinal: GERD, hiatal hernia, diverticulosis coli Hepatic: cholelithiasis Renal: UTI STRESS INCONT Musculoskeletal: fracture, osteoarthritis, osteoporosis, spinal stenosis Psychiatric: NONE Endocrine: diabetes, hypothyroidism, obesity Blood Disorders: RECURRENT DVT Cancer(s): vaginal cancer (SC Ca) [employer]ENT/Reproductive: uterine/bladder prolapse, D & C'S History of MRSA: No History of VRE: No History of CDIFF: No Surgical History Surgical History: breast biopsy, cataract removal, hernia repair-umbilical, hysterectomy, tonsillectomy bladder lift Psychosocial History Who do you live with Family Services at Home None What is your primary language Filipino Tobacco Use: Never used ETOH Use: denies use Illicit Drug Use: denies illicit drug use Family History Family History, If Any: Relation not specified for: Cancer in daughter Family history unobtainable Hx Contributory? No (ALEISHA BARAHONA) Review of Systems Review of Systems Constitutional: Reports: no symptoms. Comments Review of systems: See HPI, All other systems negative. Constitutional, no chills fever or weight loss HEENT: No visual changes no sore throat no congestion Cardiovascular: No chest pain ,palpitation , orthopnea or ankle swelling Skin, no jaundice Respiratory: No dyspnea cough sputum or hemoptysis GI: No nausea no vomiting : No dysuria No hematuria Muscle skeletal: no back pain, no neck pain, Neurologic: No numbness no confusion NO JARQUIN Psych: No stress anxiety or depression,. Heme/endocrine: No bruising no bleeding no polyuria or polydipsia Immunology: No splenectomy or history of AIDS (ENID PONCE,ALEISHA) Physical Exam Physical Exam General Appearance: well developed/nourished, no apparent distress, alert, awake , comfortable Comments: Well-developed well-nourished person in no acute distress HEENT:extraocular motion intact, no nystagmus. Pupils equally round and reactive to light and accommodation. Nose is atraumatic. External auditory canal and Tympanic membranes clear. Pharynx normal. No swelling or edema. Neck: No C-spine tenderness, full range of motion. Back: Nontender, no full range of motion, no bony tenderness. No step-off deformities. Cardiovascular: Regular rate and rhythms no murmurs rubs or gallops, normal JVP Respiratory: Chest nontender. No respiratory distress.breath sounds clear to auscultation bilaterally Extremity: Mild tenderness to palpation over the right wrist, near full range of motion somewhat limited secondary to discomfort. No snuffbox tenderness on the upper extremity's bilaterally. Licensed Therapist strength is equal and symmetric bilaterally. Tenderness to palpation over the DIP joint of the right middle finger. Moderate edema in this area. Neuro: Alert oriented x3, motor sensory normal, cranial nerves II through XII grossly intact. Skin: Abrasion noted at the proximal aspect of the right middle nailfold, nail is intact. No subungual hematoma. Psych: Mood and affect is normal, memory and judgment is normal. Core Measures ACS in differential dx? No CVA/TIA Diagnosis: No Severe Sepsis Present: No Septic Shock Present: No (ALEISHA BARAHONA) Progress Differential Diagnoses I considered the following diagnoses in my evaluation of the patient: Wrist fracture, finger fracture, dislocation, abrasion, laceration Plan of Care: Orders Procedure Date/time Status Durable Medical Equipment 11/28 1656 Active Diagnostic Imaging: Viewed by Me: Radiology Read. Discussed w/RAD: Radiology Read. Radiology Impression: PATIENT: MEENA ALFONSO PRESENT AGE: 80 PATIENT ACCOUNT NO: [id number] : 35 LOCATION: [facility] ORDERING PHYSICIAN: ALEISHA PONCE SERVICE DATE: 11/28/16-1402 EXAM TYPE: RAD - XRY-FINGERS, RIGHT; XRY-WRIST COMPLETE-RIGHT EXAMINATION: XR WRIST, RIGHT XR FINGER, RIGHT CLINICAL INFORMATION: Right wrist pain. Right 3rd finger pain and swelling status post fall. Evaluate for fracture. COMPARISON: None. TECHNIQUE: PA, oblique, lateral, and scaphoid views of the right wrist are obtained. PA view of the right hand is obtained. Oblique and lateral views of the right 3rd finger are obtained. FINDINGS: RIGHT WRIST: There is diffuse osteopenia. There is deformity of the distal radius which is likely posttraumatic. Small calcifications dorsal to the distal radius are of indeterminate age. There appears to be a focal depression of the articular surface at the radioscaphoid articulation. There are mild degenerative changes of the distal radioulnar joint. There are mild degenerative changes of the triscaphe and 1st CMC joints. There is otherwise no definite acute fracture identified. RIGHT 3RD FINGER: There is no acute fracture or malalignment. There are moderate to severe degenerative changes involving essentially all of the IP joints of the right hand, including the 3rd PIP and DIP joints. There are central erosive components involving the 2nd DIP and 4th PIP joints consistent with erosive osteoarthritis. There are mild degenerative changes of the 1st, 2nd and 5th MCP joints. IMPRESSION: 1. Right wrist: Probable chronic posttraumatic deformity of the distal radius. Small calcifications dorsal to the distal radius may also be chronic but are of indeterminate age. If an acute injury is suspected, consider CT scanning. There are mild degenerative changes of multiple joints. 2. 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 No acute fracture. DICTATED BY: LANDEN BAZAN MD CXR Impression: PATIENT: MEENA ALFONSO PRESENT AGE: 80 PATIENT ACCOUNT NO: [id number] : 35 LOCATION: [facility] ORDERING PHYSICIAN: ALEISHA PONCE SERVICE DATE: 11/28/16525 EXAM TYPE: CAT - CT UPPER EXT WO IV CONTRAST EXAMINATION: CT UPPER EXTREMITY WITHOUT CONTRAST, RIGHT CLINICAL INFORMATION: Pain, status post fall. COMPARISON: X-rays from earlier today. TECHNIQUE: Axial imaging of the right wrist. Sagittal and coronal reconstructions. DLP: 821.39 mGy-cm FINDINGS: There is dysmorphic appearance of the distal radius. There is articular surface irregularity of the distal radius. There is abnormal undulation of the articular surface, including with depression measuring up to 3-4 mm. There is small subchondral lucencies, and bony irregularity along the dorsal surface as well. There is dysmorphic appearance of the radial styloid process. The findings are suggestive of sequela of trauma, likely chronic. There are small densities associated with the medial aspect of the distal radius, which is suspected to be chronic. No definite acute fracture plane is identified in the distal radius. There is widening of the scapholunate distance. There is a cyst in the proximal pole of the scaphoid, appearing degenerative. Mild distal radioulnar joint articulation degeneration. Mild degenerative changes in the distal aspect of the ulna. No discrete acute ulnar fractures identified. There are degenerative changes noted in the wrist joint. This includes cyst changes in the proximal pole of the lunate, appearing chronic , suggesting degenerative changes. Mild degenerative changes noted in the proximal pole of the triquetrum. Degenerative changes also present in the triscaphe joint articulation, 1st carpometacarpal joint, base of the 5th metacarpal. Bones are osteopenic limiting evaluation. Joint space loss in the MCP joints as well. There is prominent arthritis in the 1st interphalangeal joint. There is incomplete evaluation of the fingers. There are arthritic changes present in the fingers, as detailed on the x-rays of the hand. IMPRESSION: 1. Posttraumatic deformity of the distal radius, with the appearance on CT suggesting a chronic injury. No definite acute fracture plane is evident. If there is clinical concern for radiographically occult fracture, ligamentous or soft tissue injury, further evaluation with MRI can be obtained as clinically warranted. 2. Widening of the scapholunate distance, suggesting compromise of the scapholunate ligament. 3. There are arthritic changes present in the wrist, detailed above. 4. The fingers are incompletely imaged and evaluated. Details as above. Dedicated cross-sectional imaging for evaluation as clinically warranted. DICTATED BY: LICO GONZALEZ MD DATE/TIME DICTATED:11/28/161554 FIREFIGHTER MARINE:UMESH DATE/TIME TRANSCRIBED:11/28/161554 CONFIDENTIAL, DO NOT COPY WITHOUT APPROPRIATE AUTHORIZATION. <Electronically signed in Other Vendor System> Initial ED EKG: none Comments: Family informed of CT results. Given CT results to take home. They will follow up with orthopedics. Placed in thumb spica splint. Will use Tylenol a counter. Educated on use of ice. Discussed with and he agrees with plan. (ENID PONCE,ALEISHA) Departure Departure Time of Disposition: 1654 Disposition: HOME OR SELF CARE Condition: Stable Clinical Impression Primary Impression: Finger sprain Qualifiers: Encounter type: initial encounter Finger: middle finger Sprain of finger site: unspecified site Laterality: right Qualified Code: S63.612A - Unspecified sprain of right middle finger, initial encounter Secondary Impressions: Wrist sprain Qualifiers: Encounter type: initial encounter Laterality: right Qualified Code: S63.501A - Unspecified sprain of right wrist, initial encounter Referrals: HERMELINDA LEONG,KESHA JAMES MD,JAZ Goodwin (PCP/Family) Additional Instructions: Follow-up with orthopedics, call to make an appointment. Wear brace for support. Ice affected areas. Return for worsening symptoms or concerns. Take [id number] Tylenol as directed for any pain. PATIENT: MEENA ALFONSO PRESENT AGE: 80 PATIENT ACCOUNT NO: [id number] : 35 LOCATION: [facility] ORDERING PHYSICIAN: ALEISHA PONCE SERVICE DATE: 11/28/16 EXAM TYPE: CAT - CT UPPER EXT WO IV CONTRAST EXAMINATION: CT UPPER EXTREMITY WITHOUT CONTRAST, RIGHT CLINICAL INFORMATION: Pain, status post fall. COMPARISON: X-rays from earlier today. TECHNIQUE: Axial imaging of the right wrist. Sagittal and coronal reconstructions. DLP: 821.39 mGy-cm FINDINGS: There is dysmorphic appearance of the distal radius. There is articular surface irregularity of the distal radius. There is abnormal undulation of the articular surface, including with depression measuring up to 3-4 mm. There is small subchondral lucencies, and bony irregularity along the dorsal surface as well. There is dysmorphic appearance of the radial styloid process. The findings are suggestive of sequela of trauma, likely chronic. There are small densities associated with the medial aspect of the distal radius, which is suspected to be chronic. No definite acute fracture plane is identified in the distal radius. There is widening of the scapholunate distance. There is a cyst in the proximal pole of the scaphoid, appearing degenerative. Mild distal radioulnar joint articulation degeneration. Mild degenerative changes in the distal aspect of the ulna. No discrete acute ulnar fractures identified. There are degenerative changes noted in the wrist joint. This includes cyst changes in the proximal pole of the lunate, appearing chronic, suggesting degenerative changes. Mild degenerative changes noted in the proximal pole of the triquetrum. Degenerative changes also present in the triscaphe joint articulation, 1st carpometacarpal joint, base of the 5th metacarpal. Bones are osteopenic limiting evaluation. Joint space loss in the MCP joints as well. There is prominent arthritis in the 1st interphalangeal joint. There is incomplete evaluation of the fingers. There are arthritic changes present in the fingers, as detailed on the x-rays of the hand. IMPRESSION: 1. Posttraumatic deformity of the distal radius, with the appearance on CT suggesting a chronic injury. No definite acute fracture plane is evident. If there is clinical concern for radiographically occult fracture, ligamentous or soft tissue injury, further evaluation with MRI can be obtained as clinically warranted. 2. Widening of the scapholunate distance, suggesting compromise of the scapholunate ligament. 3. There are arthritic changes present in the wrist, detailed above. 4. The fingers are incompletely imaged and evaluated. Details as above. Dedicated cross-sectional imaging for evaluation as clinically warranted. DICTATED BY: LICO GONZALEZ MD DATE/TIME DICTATED:11/28/161554 FIREFIGHTER MARINE:UMESH DATE/TIME TRANSCRIBED:11/28/161554 CONFIDENTIAL, DO NOT COPY WITHOUT APPROPRIATE AUTHORIZATION. <Electronically signed in Other Vendor System> Departure Forms: Customer Survey General Discharge Information (ALEISHA BARAHONA) PA/ANALYSIS CONSULTANT Co-Sign Statement Statement: ED Attending supervision documentation- x I saw and evaluated the patient. I have also reviewed all the pertinent lab results and diagnostic results. I agree with the findings and the plan of care as documented in the PA's/ANALYSIS CONSULTANT's documentation. [] I have reviewed the ED Record and agree with the PA's/ANALYSIS CONSULTANT's documentation. [] Additions or exceptions (if any) to the PAs/ANALYSIS CONSULTANT's note and plan are summarized below: [] (AMANDA LEONG,AKIN) Procedures Splinting Location: right wrist Manual Alignment Performed: No Pre-Made Type: velcro Splint: thumb spica Splint Applied By: splint applied by other (nursing) Pre-Proc Neuro Vasc Exam: normal Post-Proc Neuro Vasc Exam: normal Progress: tolerated procedure well. (ALEISHA BRAAHONA) Critical Care Note Critical Care Note Critical Care Time: non-applicable (ALEISHA BARAHONA)
--- NOTE | 2016-11-28 15:00 | RADIOLOGY REPORT ---
EXAMINATION: XR WRIST, RIGHT XR FINGER, RIGHT CLINICAL INFORMATION: Right wrist pain. Right 3rd finger pain and swelling status post fall. Evaluate for fracture. COMPARISON: None. TECHNIQUE: PA, oblique, lateral, and scaphoid views of the right wrist are obtained. PA view of the right hand is obtained. Oblique and lateral views of the right 3rd finger are obtained. FINDINGS: RIGHT WRIST: There is diffuse osteopenia. There is deformity of the distal radius which is likely posttraumatic. Small calcifications dorsal to the distal radius are of indeterminate age. There appears to be a focal depression of the articular surface at the radioscaphoid articulation. There are mild degenerative changes of the distal radioulnar joint. There are mild degenerative changes of the triscaphe and 1st CMC joints. There is otherwise no definite acute fracture identified. RIGHT 3RD FINGER: There is no acute fracture or malalignment. There are moderate to severe degenerative changes involving essentially all of the IP joints of the right hand, including the 3rd PIP and DIP joints. There are central erosive components involving the 2nd DIP and 4th PIP joints consistent with erosive osteoarthritis. There are mild degenerative changes of the 1st, 2nd and 5th MCP joints. IMPRESSION: 1. Right wrist: Probable chronic posttraumatic deformity of the distal radius. Small calcifications dorsal to the distal radius may also be chronic but are of indeterminate age. If an acute injury is suspected, consider CT scanning. There are mild degenerative changes of multiple joints. 2. 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 No acute fracture.
[2016-11-28 16:22] VITALS: BP 113/60
--- NOTE | 2016-11-28 16:47 | CT SCAN REPORT ---
EXAMINATION: CT UPPER EXTREMITY WITHOUT CONTRAST, RIGHT CLINICAL INFORMATION: Pain, status post fall. COMPARISON: X-rays from earlier today. TECHNIQUE: Axial imaging of the right wrist. Sagittal and coronal reconstructions. DLP: 821.39 mGy-cm FINDINGS: There is dysmorphic appearance of the distal radius. There is articular surface irregularity of the distal radius. There is abnormal undulation of the articular surface, including with depression measuring up to 3-4 mm. There is small subchondral lucencies, and bony irregularity along the dorsal surface as well. There is dysmorphic appearance of the radial styloid process. The findings are suggestive of sequela of trauma, likely chronic. There are small densities associated with the medial aspect of the distal radius, which is suspected to be chronic. No definite acute fracture plane is identified in the distal radius. There is widening of the scapholunate distance. There is a cyst in the proximal pole of the scaphoid, appearing degenerative. Mild distal radioulnar joint articulation degeneration. Mild degenerative changes in the distal aspect of the ulna. No discrete acute ulnar fractures identified. There are degenerative changes noted in the wrist joint. This includes cyst changes in the proximal pole of the lunate, appearing chronic, suggesting degenerative changes. Mild degenerative changes noted in the proximal pole of the triquetrum. Degenerative changes also present in the triscaphe joint articulation, 1st carpometacarpal joint, base of the 5th metacarpal. Bones are osteopenic limiting evaluation. Joint space loss in the MCP joints as well. There is prominent arthritis in the 1st interphalangeal joint. There is incomplete evaluation of the fingers. There are arthritic changes present in the fingers, as detailed on the x-rays of the hand. IMPRESSION: 1. Posttraumatic deformity of the distal radius, with the appearance on CT suggesting a chronic injury. No definite acute fracture plane is evident. If there is clinical concern for radiographically occult fracture, ligamentous or soft tissue injury, further evaluation with MRI can be obtained as clinically warranted. 2. Widening of the scapholunate distance, suggesting compromise of the scapholunate ligament. 3. There are arthritic changes present in the wrist, detailed above. 4. The fingers are incompletely imaged and evaluated. Details as above. Dedicated cross-sectional imaging for evaluation as clinically warranted.
[2016-11-28] MEDS ORDERED: PHENYTOIN SODI100 MG PO (16:49)
[2016-11-28] MEDS ORDERED: OXYCODONE-ACET1 EACH PO (16:49)
== END 2016-11-28 17:18 ==
LOC: ERH 13:45
DX: S63.612A Unspecified sprain of right middle finger, initial encounter (principal); W19.XXXA Unspecified fall, initial encounter; W18.09XA Striking against other object with subsequent fall, initial encounter; Y92.002 Bathroom of unspecified non-institutional (private) residence as the place of occurrence of the external cause
CPT/HCPCS: 73110-RT; 73140-RT

== ENCOUNTER 2017-09-16 15:48 | Emergency (ER) | payer OTHER, MEDICARE ==
[~2017-09-16] VITALS: Ht 149.9 cm; Wt 90.7 kg
[~2017-09-16 15:48] MED LIST changes: +CALCIUM 500 +1 EAC5 PO; +FERROUS SULFAT325 M3 PO; +MACROBID 100 M100 MG PO; +METAMUCIL660 GM PO; +MULTI FOR HER1 EAC2 PO; +OXYCODONE-ACET1 EACH PO
--- NOTE | 2017-09-16 17:47 | ED GI/GU/ABDOMINAL COMPLAINT ---
History of Present Illness General Chief Complaint: General Adult Stated Complaint: COUGH, ?BOWEL OBSTRUCTION Source: patient Exam Limitations: no limitations Allergies Uncoded Allergies: INHALER (UNSURE NAME) (HIVES 09/07/11) Reconcile Medications Aspirin (Ecotrin*) 81 MG TABLET.DR 1 TAB PO DAILY HEART/BLOOD (Reported) Calcium Carbonate/Vitamin D3 (Calcium 500 + D Tablet) (Unknown Strength) TABLET (Unknown Dose) PO BID SUPPLEMENT (Reported) Docusate Sodium (Colace) 100 MG CAPSULE 1 CAP PO BID STOOL SOFTENER (Reported ) Estradiol (Estrace) 0.01 % CREAM.APPL 1 SANAZ VG 2XW HRT (Reported) Famotidine 20 MG TABLET 1 TAB PO DAILY GI (Reported) Ferrous Sulfate 325 MG (65 MG IRON) TABLET 1 TAB PO BID SUPPLEMENT (Reported) Furosemide 40 MG TABLET 1 TAB PO DAILY DIURETIC (Reported) Levothyroxine Sodium 100 MCG TABLET 1 TAB PO DAILY THYROID (Reported) Metformin HCl 500 MG TABLET 1 TAB PO BID DM (Reported) Metoprolol Tartrate 25 MG TABLET 1 TAB PO DAILY HEART/BP (Reported) Mv,Ca,Min/Iron Fum/FA/Vit K (Multi For Her Tablet) 18 MG IRON-600 MCG-80 MCG TABLET 1 TAB PO DAILY SUPPLEMENT (Reported) Nitrofurantoin Monohyd/M-Cryst (Macrobid 100 MG Capsule) 100 MG CAPSULE 1 CAP PO BID UTI with food Nitroglycerin (Nitroglycerin Patch) 0.4 MG/HOUR PATCH.TD24 1 PATCH TOP DAILY HEART (Reported) Phenobarbital 32.4 MG TABLET 3 TAB PO QPM SEIZURES (Reported) Phenytoin Sodium Extended 100 MG CAPSULE 2 CAP PO QPM SEIZURES (Reported) Phenytoin Sodium Extended 100 MG CAPSULE 1 CAP PO QAM SEIZURES (Reported) Polyethylene Glycol 3350 (Miralax) 17 GRAM POWD.PACK 1 PAC PO DAILY-BID GI ( Reported) dissolve in water Potassium Chloride 10 MEQ TAB.ER.PRT 1 TAB PO DAILY SUPPLEMENT (Reported) Psyllium Husk (Metamucil) (Unknown Strength) POWDER 1 TSP PO BID GI (Reported ) Simvastatin (Simvastatin*) 40 MG TABLET 1 TAB PO QPM CHOLESTEROL (Reported) Sulfamethoxazole/Trimethoprim (Bactrim Ds Tablet) 800 MG-160 MG TABLET 1 TAB PO BID UTI Valsartan 80 MG TABLET 1 TAB PO DAILY BP (Reported) Triage Note: PT PRESENTS TO THE ER, PER PT " I FEEL LIKE I HAVE A COLON BLOCK" PT STATES THAT SHE HAD DIARRHEA THIS AM.. PER PT ITS LIKE SEEPING OUT. PT STATES LAST TIME THIS HAPPEN SHE HAD A BLOCKAGE. PT STATES SHE FEELS DISCOMFORT. Triage Nurses Notes Reviewed? yes ? N Is pt currently ? No Onset: Sunday, 3 days ago Duration: day(s): (3) Timing: multiple episodes today Quality/Severity: cramping, mild Severity Numbers: 5 Location: periumbilical Radiation: no radiation HPI: 81 y/o female presents to ED complaining of nonbloody diarrhea. It started on Sunday, 3 days ago. The diarrhea started she took a dose of Metamucil which did not change her symptoms. Patient reports abdominal discomfort, denies any significant pain. States last year she had similar symptoms and ended up having a bowel obstruction. Patient also reports she's had a cough for the last 4 months. It is productive of yellow/green sputum. Denies any associated chest pain, fever, chills, nausea, vomiting. She was previously on Coumadin for frequent blood clots but her doctor discontinued this last year. She does take aspirin daily. Denies any recent surgeries. (Troy Cook) Vital Signs & Intake/Output Vital Signs & Intake/Output Vital Signs Date Time Temp Pulse Resp B/P B/P Pulse O2 O2 Flow FiO2 Mean Ox Delivery Rate 09/16 2201 97.0 78 18 118/63 96 Room Air 09/16 1903 98.3 60 18 116/57 95 Room Air ED Intake and Output 09/17 0000 09/16 1200 Intake Total 180 Output Total Balance 180 Intake, Oral 180 Patient 200 lb Weight Weight Reported by Patient Measurement Method (Parvin LEONG,Terry Dai) Past History Travel History Traveled to [place] past 21 day No Medical History Any Pertinent Medical History? 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 No (Troy Cook) Review of Systems Review of Systems Constitutional: Denies: chills, fever. EENTM: Reports: no symptoms. Respiratory: Reports: see HPI, cough. Cardiovascular: Reports: no symptoms. GI: Reports: see HPI. Genitourinary: Reports: no symptoms. Musculoskeletal: Reports: no symptoms. Skin: Reports: no symptoms. Neurological/Psychological: Reports: no symptoms. Hematologic/Endocrine: Reports: no symptoms. Immunologic/Allergic: Reports: no symptoms. All Other Systems: Reviewed and Negative (Troy Cook) Physical Exam Physical Exam General Appearance: well developed/nourished, no apparent distress, alert Head: atraumatic Eyes: Bilateral: PERRL, EOMI. Ears, Nose, Throat, Mouth: moist mucous membrane Neck: supple Respiratory: normal breath sounds, no respiratory distress, lungs clear, No w/r/ r Cardiovascular: regular rate/rhythm, Normal s1/s2, no M/R/G Gastrointestinal: hernia, soft, periumbilical tenderness with large umbilical hernia, REDUCIBLE , no rebound or guarding, neg murphys sign, no mcburneys point tenderness Extremities: normal range of motion Neurologic/Psych: alert, oriented x 3, normal gait Skin: intact, normal color, warm/dry Core Measures ACS in differential dx? No Sepsis Present: No Sepsis Focused Exam Completed? No (Troy Cook) Progress Differential Diagnosis: AMI, bowel obstruction, colon cancer, diverticulitis, gastritis, hernia, ischemic bowel, PUD/GERD, SBO, UTI/pyelo Diagnostic Imaging: Viewed by Me: CT Scan. Discussed w/RAD: CT Scan. Radiology Impression: PATIENT: MEENA ALFONSO PRESENT AGE: 81 PATIENT ACCOUNT NO: [id number] : 35 LOCATION: [facility] ORDERING PHYSICIAN: Troy PONCE SERVICE DATE: 09/16/17-5856 EXAM TYPE: CAT - CT ABD & PELVIS W IV CONTRAST EXAMINATION: CT ABDOMEN AND PELVIS WITH CONTRAST CLINICAL INFORMATION: Shortness of breath. COMPARISON: CT abdomen pelvis 2016 TECHNIQUE: Multidetector volumetric imaging was performed of the abdomen and pelvis following IV administration of 95 mL of Optiray 320 intravenous contrast. Sagittal and coronal reformatted images were obtained on the technologist's workstation. DLP: 1255.91 mGy-cm FINDINGS: LUNG BASES: Lungs are clear. There is coronary artery calcification. There are calcifications of the thoracic aortic wall. LIVER, GALLBLADDER, AND BILIARY TREE: The liver is normal in size, shape, and attenuation. No focal hepatic lesion or biliary ductal dilatation is present. No calcified gallstones within the gallbladder. These are in the fundus of the gallbladder. No edema around the gallbladder. No bile duct dilatation. PANCREAS: Unremarkable. SPLEEN: Unremarkable. ADRENAL GLANDS: Unremarkable. KIDNEYS AND URETERS: The kidneys are normal in size, shape, and attenuation. No hydronephrosis, hydroureter, or calculi seen. No perinephric stranding. BLADDER: Unremarkable. GASTROINTESTINAL TRACT: Large collection of stool in the rectum sigmoid seen on the CAT scan of 02/22/2017 is not present on today's study. The rectum sigmoid is gas-filled. The wall of the rectum and sigmoid is mildly thickened to the mid sigmoid without surrounding edema. The most thickened portion of the wall is in the lower rectum. There is a large volume of stool throughout the remainder the colon to the cecum. There is no transition point. The small bowel loops are unremarkable. The appendix is not identified. There is no inflammation the mesentery. ABDOMINAL WALL: No significant hernia is appreciated. LYMPH NODES: Normal. VASCULAR: There is atherosclerotic vascular wall calcifications of aorta and iliac arteries and the splenic artery. PELVIC VISCERA: The uterus is absent. OSSEOUS STRUCTURES: Degenerative spondylosis of spine. Multilevel disc height narrowing, endplate spurs and vertebral facet joint arthrosis. IMPRESSION: 1. There is no bowel obstruction. There is a large volume of stool in colon to the descending colon. There is no significant stool in the rectum and sigmoid. The rectum sigmoid is gas-filled with mild bowel wall thickening without edema in the surrounding pericolonic fat. 2. Cholelithiasis. DICTATED BY: Rufino Mendez MD DATE/TIME DICTATED:09/16/172041 BORE MINER OPERATOR:UMESH DATE/TIME TRANSCRIBED:2041 CONFIDENTIAL, DO NOT COPY WITHOUT APPROPRIATE AUTHORIZATION. < Electronically signed in Other Vendor System> SIGNED BY: Rufino Mendez MD 2053, PATIENT: MEENA ALFONSO PRESENT AGE: 81 PATIENT ACCOUNT NO: [id number] : 35 LOCATION: [facility] ORDERING PHYSICIAN: Troy PONCE SERVICE DATE: 09/16/17 EXAM TYPE: RAD - XRY-PORTABLE CHEST XRAY EXAMINATION: XR PORTABLE CHEST CLINICAL INFORMATION: Cough for 4 months. COMPARISON: Chest x-ray 09/27/2016 TECHNIQUE: Portable frontal view of the chest was obtained. 6:39 PM FINDINGS: There is emphysematous changes of lungs. There is no acute abnormality. There is no infiltrate. There is no pulmonary vascular congestion or pleural effusion. The cardiac and mediastinal contours are unchanged. There are calcifications of aortic arch. IMPRESSION: No acute abnormality of chest. DICTATED BY: Rufino Mendez MD DATE/TIME DICTATED:1899 BORE MINER OPERATOR:UMESH DATE/TIME TRANSCRIBED:09/16/171899 CONFIDENTIAL, DO NOT COPY WITHOUT APPROPRIATE AUTHORIZATION. <Electronically signed in Other Vendor System> SIGNED BY: Rufino Mendez MD 09/16/171904 Initial ED EKG: normal sinus rhythm, rate (57), nonspecific ST T wave chg Prior EKG: unchanged (Ollie PONCE,Troy) Plan of Care: Orders Procedure Date/time Status Add-on Test (ER Only) 09/17 2155 Active CULTURE,URINE 09/17 2111 Active URINALYSIS 09/17 2055 Complete Add-on Test (ER Only) 09/17 1927 Active TROPONIN LEVEL 09/16 1828 Complete Laboratory Tests 09/16/172111: Urine Color YEL, Urine Clarity CLDY H, Urine pH 6.5, Ur Specific [place] <= 1.005, Urine Protein TRACE H, Urine Ketones NEG, Urine Nitrite NEG, Urine Bilirubin NEG, Urine Urobilinogen 0.2, Ur Leukocyte Esterase LARGE H, Ur Microscopic SEDIMENT EXAMINED, Urine RBC 1-3, Urine WBC > 75 H, Ur Epithelial Cells RARE, Urine Bacteria MOD H, Urine Hemoglobin MOD H, Urine Glucose NEG 09/16/172036: Lactic Acid Cancelled Microbiology 09/17 2111 URINE ROUT: Urine Culture - RES GRAM NEGATIVE RODS (Parvin LEONG,Terry Dai) Departure Departure Disposition: HOME OR SELF CARE Condition: Stable Clinical Impression Primary Impression: Abdominal pain Secondary Impressions: UTI (urinary tract infection) Referrals: Mike Cash MD (PCP/Family) Additional Instructions: take Bactrim as prescribed. Follow-up with your primary care doctor. Return if any concerns worsening symptoms. Please go over all results of today's visit with your primary care doctor. Contact your primary care doctor to let them know you were here in the emergency room. There may be nonspecific findings which may not be related to your visit today here in the emergency room but may require further evaluation and chronic monitoring by your primary care doctor. If you had a laceration today the chance of foreign body always remains. You should follow-up with your primary care doctor for recheck in 3-5 days for a wound check. If you had an x-ray done there is a chance that a fracture could have been missed on initial read and you should follow-up with your primary care doctor for repeat x-rays if symptoms persist. If your blood pressure was elevated here in the emergency room please have rechecked by [facility] primary care doctor within the next 48. If you were prescribed a narcotic here in the emergency room or any type of controlled substances you're not allowed to drive while taking this medication or operate any type of heavy machinery. Narcotics can make you feel lightheaded dizziness nausea and can cause constipation. You may need to picker and packer a stool softener. Thank you for choosing [facility] emergency room. Please return to the emergency room immediately if you have any other concerns worsening of symptoms. Departure Forms: Customer Survey General Discharge Information Prescriptions: Current Visit Scripts Sulfamethoxazole/Trimethoprim (Bactrim Ds Tablet) 1 TAB PO BID #14 TAB Comments 09/16/17 Patient clinically looks well. Patient is in no apparent distress. Patient is nontoxic-appearing. No acute findings other than a UTI. Started on oral antibiotics. Follow-up with PCP. Return if any other concerns. No complaints of chest pain or shortness of breath. Patient understands and agrees with plan of care. (Troy Cook) PA/FILM CLEANER Co-Sign Statement Statement: ED Attending supervision documentation- [x] I saw and evaluated the patient. I have also reviewed all the pertinent lab results and diagnostic results. I agree with the findings and the plan of care as documented in the PA's/FILM CLEANER's documentation. [] I have reviewed the ED Record and agree with the PA's/FILM CLEANER's documentation. [] Additions or exceptions (if any) to the PAs/FILM CLEANER's note and plan are summarized below: [] (Parvin LEONG,Terry Dai)
[2017-09-16 18:36] LABS: ABSOLUTE BASOPHIL COUNT 0.1 /CUMM (0.0-0.2); ABSOLUTE EOSINOPHIL COUNT 0.2 /CUMM (0.0-0.7); ABSOLUTE GRANULOCYTE CT 3.7 /CUMM (1.4-6.5); ABSOLUTE LYMPH COUNT 2.2 /CUMM (1.2-3.4); ABSOLUTE MONOCYTE COUNT 0.9 /CUMM (0.10-0.60); BASOPHIL % 1.1 % (0.0-2.0); EOSINOPHIL % 3.3 % (0-5); GRANULOCYTE % 52.1 % (42.2-75.2); HEMATOCRIT 30.1 % (37-47); MEAN CORPUSCULAR HGB 31.8 PG (27.0-31.0); MEAN CORPUSCULAR HGB CONC 33.7 G/DL (33.0-37.0); MEAN CORPUSCULAR VOLUME 94.3 FL (81.0-99.0); MEAN PLATELET VOLUME 7.4 FL (7.4-10.4); PLATELET COUNT 277 /CUMM (130-400); RBC DISTRIBUTION WIDTH 13.3 % (11.5-14.5); WHITE BLOOD CELL COUNT 7.2 /CUMM (4.8-10.8)
--- NOTE | 2017-09-16 19:05 | RADIOLOGY REPORT ---
EXAMINATION: XR PORTABLE CHEST CLINICAL INFORMATION: Cough for 4 months. COMPARISON: Chest x-ray 09/27/2016 TECHNIQUE: Portable frontal view of the chest was obtained. 6:39 PM FINDINGS: There is emphysematous changes of lungs. There is no acute abnormality. There is no infiltrate. There is no pulmonary vascular congestion or pleural effusion. The cardiac and mediastinal contours are unchanged. There are calcifications of aortic arch. IMPRESSION: No acute abnormality of chest.
--- NOTE | 2017-09-16 20:54 | CT SCAN REPORT ---
EXAMINATION: CT ABDOMEN AND PELVIS WITH CONTRAST CLINICAL INFORMATION: Shortness of breath. COMPARISON: CT abdomen pelvis 02/22/2017 TECHNIQUE: Multidetector volumetric imaging was performed of the abdomen and pelvis following IV administration of 95 mL of Optiray 320 intravenous contrast. Sagittal and coronal reformatted images were obtained on the technologist's workstation. DLP: 1255.91 mGy-cm FINDINGS: LUNG BASES: Lungs are clear. There is coronary artery calcification. There are calcifications of the thoracic aortic wall. LIVER, GALLBLADDER, AND BILIARY TREE: The liver is normal in size, shape, and attenuation. No focal hepatic lesion or biliary ductal dilatation is present. No calcified gallstones within the gallbladder. These are in the fundus of the gallbladder. No edema around the gallbladder. No bile duct dilatation. PANCREAS: Unremarkable. SPLEEN: Unremarkable. ADRENAL GLANDS: Unremarkable. KIDNEYS AND URETERS: The kidneys are normal in size, shape, and attenuation. No hydronephrosis, hydroureter, or calculi seen. No perinephric stranding. BLADDER: Unremarkable. GASTROINTESTINAL TRACT: Large collection of stool in the rectum sigmoid seen on the CAT scan of 02/22/2017 is not present on today's study. The rectum sigmoid is gas-filled. The wall of the rectum and sigmoid is mildly thickened to the mid sigmoid without surrounding edema. The most thickened portion of the wall is in the lower rectum. There is a large volume of stool throughout the remainder the colon to the cecum. There is no transition point. The small bowel loops are unremarkable. The appendix is not identified. There is no inflammation the mesentery. ABDOMINAL WALL: No significant hernia is appreciated. LYMPH NODES: Normal. VASCULAR: There is atherosclerotic vascular wall calcifications of aorta and iliac arteries and the splenic artery. PELVIC VISCERA: The uterus is absent. OSSEOUS STRUCTURES: Degenerative spondylosis of spine. Multilevel disc height narrowing, endplate spurs and vertebral facet joint arthrosis. IMPRESSION: 1. There is no bowel obstruction. There is a large volume of stool in colon to the descending colon. There is no significant stool in the rectum and sigmoid. The rectum sigmoid is gas-filled with mild bowel wall thickening without edema in the surrounding pericolonic fat. 2. Cholelithiasis.
[2017-09-16 22:01] VITALS: BP 118/63
[2017-09-16] MEDS ORDERED: BACTRIM DS TAB1 EACH PO (22:07)
== END 2017-09-16 22:29 ==
LOC: ERH 15:48
PROVIDERS: Physician Assistant Medical
DX: N39.0 Urinary tract infection, site not specified (principal); R10.33 Periumbilical pain; R19.7 Diarrhea, unspecified
CPT/HCPCS: 71045; 74177; 81001; 87086; 93005; 93010